=== PATIENT | male | born 1955 | race Caucasian/White ===

== ENCOUNTER → 2017-05-21 | Outpatient (CLI) | payer OTHER | END | disposition home or self-care (01) | LOC: C.LABSPEC 11:24 | PROVIDERS: ATTEND Family Medicine | DX: L98.9 Disorder of the skin and subcutaneous tissue, unspecified (principal) ==

== ENCOUNTER 2019-08-18 19:52 | Observation (INO) ==
[2019-08-18] MEDS ORDERED: SODIUM CHLORIDE 0.9% 1000ML 1,000 ML IV ONE (21:21)
[2019-08-18 21:38] LABS: Basophils # (auto) 0.03 K/uL (0-0.2); Basophils % (auto) 0.6 %; Eosinophils # (auto) 0.29 K/uL (0-0.5); Hematocrit (blood only) 45.2 % (42-52); Hemoglobin 15.8 g/dL (14.0-18.0); Immature Granulocytes # (auto) 0.01 K/uL (0.00-0.02); Immature Granulocytes % (auto) 0.2 %; Lymphocytes # (auto) 1.65 K/uL (1.2-3.4); Mean Corpuscular Volume 91.5 fL (80-100); Mean Platelet Volume 11.2 fL (7.4-10.4); Monocytes # (auto) 0.54 K/uL (0.11-0.59); Monocytes % (auto) 11.1 %; Neutrophils # (auto) 2.33 K/uL (1.4-6.5); Neutrophils % (auto) 48.1 %; Platelet Count 197 K/uL (130-400); RDW Coefficient of Variation 13.1 % (11.5-14.5); RDW Standard Deviation 43.6 fL (36.4-46.3); Red Blood Count 4.94 M/uL (4.7-6.1); White Blood Count 4.85 K/uL (4.8-10.8)
[2019-08-18 21:46] LABS: Alanine Aminotransferase 42 U/L (12-78); Albumin Level 4.1 gm/dl (3.4-5.0); Aspartate Aminotransferase 26 U/L (15-37); BUN Creatinine Ratio 16.1 (10-20); Blood Urea Nitrogen 18 mg/dl (7-18); Calcium 8.9 mg/dl (8.5-10.1); Carbon Dioxide 26 mmol/L (21-32); Chloride 108 mmol/L (98-107); Creatinine Clr Calc Pharmacy 68.8 ml/min; Glucose 90 mg/dl (70-99); Magnesium 2.2 mg/dl (1.8-2.4); Potassium 3.7 mmol/L (3.5-5.1); Sodium 141 mmol/L (136-145)
[2019-08-18 21:49] LABS: INR 1.1 (0.9-1.1); Partial Thromboplastin Ratio 0.9; Prothrombin Time 11.2 Seconds (9.0-12.0)
[2019-08-18 21:50] LABS: Albumin Globulin Ratio 1.2 (0.9-2); Alkaline Phosphatase 46 U/L (45-117); Bilirubin,Total 0.5 mg/dl (0.2-1); Globulin 3.3 gm/dl (2.5-4.0); Total Protein 7.4 gm/dl (6.4-8.2); Troponin I < 0.015 ng/ml (0-0.045)
[2019-08-18 21:54] LABS: iSTAT Creatinine 1.1 mg/dl (0.6-1.3); iSTAT Hemoglobin 14.6 g/dl (14.0-18.0); iSTAT Ionized Calcium 1.15 mmol/l (1.12-1.32); iSTAT Potassium 3.8 mEq/L (3.3-5.0)
[2019-08-18] MEDS ORDERED: OPTIRAY 320 125ml IV PRN (22:12)
--- NOTE | 2019-08-18 22:23 | CT Scan Report ---
HEAD CT NONCONTRAST CT DOSE: HISTORY: Loss of vision in left eye. Stroke evaluation TECHNIQUE: Multiaxial CT images of the head were performed without the use of intravenous contrast. A utomated exposure control was utilized for this study. A dose lowering technique was utilized adheri ng to the principles of ALARA. Comparison: None. Findings: The paranasal sinuses and mastoid air cells are clear. The calvarium and skull base are int act. The ventricles and sulci are within normal limits for age. There is no mass, hematoma, midline s hift, or acute infarct. Impression: No acute intracranial abnormality. Electronically signed by: Milton Rios M.D. 08/18/2019 10:22 PM
--- NOTE | 2019-08-18 22:37 | CT Scan Report ---
HEAD & NECK CTA HISTORY: loss of vision b/l r daly TECHNIQUE: Multiaxial CT images of the head were performed following the intravenous administration o f contrast to evaluate the major cerebral vessels. Multiaxial CT images of the neck were also perform ed following the intravenous administration of contrast to evaluate the major cervical vessels. Maxim um intensity projection images were also obtained. A dose lowering technique was utilized adhering to the principles of ALARA. COMPARISON: Head CT 08/18/2019. FINDINGS: There is no mass, hematoma, midline shift, or acute infarct. Visualized intracranial internal carotid arteries, distal vertebral arteries, and basilar artery are widely patent. There is no significant s tenosis, occlusion, or aneurysm seen within the bilateral ACAs, MCAs, or manager lab. The major dural venous sinuses are patent. Minimal calcified plaque within the bilateral carotid siphons. The aortic arch and proximal great vessels are widely patent. There is no significant stenosis, occ lusion, or dissection identified within the bilateral common carotid, internal carotid, or vertebral arteries. Small retention cyst within the right maxillary sinus. Moderate to severe disc space narrow ing at C3-C4, C5-C6, and C6-C7 with associated small endplate osteophytes. Tortuous bilateral distal internal carotid arteries. Punctate focus of calcified plaque within the left carotid bulb. IMPRESSION: 1. No significant stenosis, occlusion, or aneurysm within the [place]. 2. No significant stenosis, occlusion, or dissection identified within the carotid or vertebral arter ies. Electronically signed by: Milton Rios M.D. 08/18/2019 10:34 PM
--- NOTE | 2019-08-18 22:37 | CT Scan Report ---
HEAD & NECK CTA HISTORY: loss of vision b/l r daly TECHNIQUE: Multiaxial CT images of the head were performed following the intravenous administration o f contrast to evaluate the major cerebral vessels. Multiaxial CT images of the neck were also perform ed following the intravenous administration of contrast to evaluate the major cervical vessels. Maxim um intensity projection images were also obtained. A dose lowering technique was utilized adhering to the principles of ALARA. COMPARISON: Head CT 08/18/2019. FINDINGS: There is no mass, hematoma, midline shift, or acute infarct. Visualized intracranial internal carotid arteries, distal vertebral arteries, and basilar artery are widely patent. There is no significant s tenosis, occlusion, or aneurysm seen within the bilateral ACAs, MCAs, or sales recruiter. The major dural venous sinuses are patent. Minimal calcified plaque within the bilateral carotid siphons. The aortic arch and proximal great vessels are widely patent. There is no significant stenosis, occ lusion, or dissection identified within the bilateral common carotid, internal carotid, or vertebral arteries. Small retention cyst within the right maxillary sinus. Moderate to severe disc space narrow ing at C3-C4, C5-C6, and C6-C7 with associated small endplate osteophytes. Tortuous bilateral distal internal carotid arteries. Punctate focus of calcified plaque within the left carotid bulb. IMPRESSION: 1. No significant stenosis, occlusion, or aneurysm within the [place]. 2. No significant stenosis, occlusion, or dissection identified within the carotid or vertebral arter ies. Electronically signed by: Milton Rios M.D. 08/18/2019 10:34 PM
[2019-08-18] MEDS ORDERED: ASPIRIN CHEW 324 MG PO STA (22:50)
[2019-08-18] MEDS ORDERED: ASPIRIN 81 MG CHEW ONE (22:55)
--- NOTE | 2019-08-18 23:50 | History & Physical Report ---
Date of Service August 18, 2019 Assessment & Plan (1) TIA (transient ischemic attack): Patient presenting after brief episode of homonymous hemianopsia, has resolved completely. Concern for TIA -Observation to medical floor with telemetry -Check MRI brain -Check 2D echo -Check Lipid panel and AIC for risk stratification -Initiate antiplatelet therapy - ASA 81mg po daily -Initiate statin therapy - Atorvastatin 20mg po daily -Neurology consultation appreciated F/E/N - Heplock. Electrolytes WNL. Heart healthy diet as tolerated Ppx - SCDs Code - Full Dispo - Observation to medical floor with telemetry History of Present Illness Chief Complaint: visual loss Primary Care Provider: Oren Laboy MD Grant Harris is a 63yo C male with no significant past medical history presenting with acute visual field deficit. Patient was leaving work this evening when he developed acute loss of right sided visual daly bilaterally. Symptoms lasted approximately 1 minute then slowly resolved over 10-15 seconds. Patient presently with no complaints. Feels that his vision has returned to normal. He denies headache, slurred speech, facial droop, numbness/tingling/CP/palpitations/SOB No additional complaints at this time ER Course: ASA 81mg po daily, NSS Allergies Allergy/AdvReac Type Severity Reaction Status Date / Time latex Allergy Unknown RASH Verified 08/18/19 22:54 No Known Drug Allergies Allergy Unknown NKDA Verified 08/18/19 22:54 Home Medications Home Medications Medication Instructions Recorded Confirmed Type Ca carb-D3-mag xg-uod-idwa-Zn 1 tab PO DAILY 12/15/18 08/18/19 History [Caltrate + D3 Plus Minerals] cyanocobalamin (vitamin B-12) 1,000 mcg PO DAILY 12/15/18 08/18/19 History [Vitamin B-12] omega 9-rzm-qrt-fish oil [Fish Oil] 1 cap PO BID 12/15/18 08/18/19 History vit C,A-Lj-jgoda-lutein-zeaxan 1 tab PO BID 12/15/18 08/18/19 History [PreserVision AREDS-2] azelastine 137 mcg (0.1 %) nasal 2 sprays INTNAS BID PRN #30 ml 07/07/19 08/18/19 Rx spray aerosol fluticasone propionate 50 2 sprays INTNAS DAILY #9.9 gm 07/07/19 08/18/19 Rx mcg/actuation nasal spray,suspension multivitamin tablet 1 tab PO DAILY 08/06/19 08/18/19 History rifaximin 550 mg tablet 550 mg PO TID 08/06/19 08/18/19 History Past Med/Surg History Medical History Acquired deviated nasal septum Acute recurrent sinusitis Chronic sinusitis Facial pain Headache Hypertrophy of nasal turbinates Laryngopharyngeal reflux Nasal congestion Right inguinal hernia Sleep apnea Throat clearing Tinnitus Surgical History S/P laparoscopic hernia repair S/P skin biopsy Status post arthroscopic knee surgery Family History Mother Hypertension Cancer Breast cancer Cardiac disorder Father Cancer Brother Colon cancer Social History Preferred Language: Macedonian marital status: Feels Safe at Home: Yes Smoking Status: Never smoker Second Hand Exposure: No ; Hx Alcohol Use: Yes (2 drinks / day) Hx Substance Use: No Childhood Exposure to Second-Hand Smoke: No Review of Systems Review of Systems: All systems reviewed & are unremarkable except as noted in HPI & below Physical Exam Physical Exam: General: patient resting comfortably, NAD, non-toxic in appearance, AA&O x 4 Skin: warm, dry, intact, no rashes or lesions HEENT: NC/AT, PERRL, EOMI, anicteric sclera, conjunctiva without injection, external ear normal to inspection and nontender, nares patent, moist mucus membranes, dentition intact, no oropharyngeal lesions, neck supple, trachea midline, no LAD, no thyromegaly, no JVD Heart: +S1/S2, regular, no m/r/g Lungs: equal air entry bilaterally, no rales/rhonchi/wheezes Abd: +BS, soft, NT/ND, no masses/organomegaly/ascites Ext: warm, 2+ pulses in UE/LE bilaterally, no clubbing/cyanosis or edema Neuro: nonfocal, patient AA&O x 4, speech intact, no facial droop, CN II-XII grossly intact, normal visual field testing full by confrontation, sensation to light touch intact, moving all extremities on command with equal strength 5/5 bilaterally, coordination with finger to nose and heel to [place] intact Results & Data Vital Signs (Past 12 Hours) Vital Signs Temp Pulse Pulse Resp BP BP Pulse Ox 08/18/19 22:59 83 18 139/92 99 08/18/19 22:24 71 21 144/95 H 97 08/18/19 22:13 68 16 144/95 H 98 08/18/19 21:05 67 16 152/99 H 98 08/18/19 20:28 36.6 C 67 18 140/92 97 Laboratory Results Lab Results 08/18/19 08/18/19 08/18/19 Range/Units 20:57 20:57 20:57 WBC 4.85 (4.8-10.8) K/uL RBC 4.94 (4.7-6.1) M/uL Hgb 15.8 (14.0-18.0) g/dL POC Hgb (14.0-18.0) g/dl Hct 45.2 (42-52) % POC Hct (42-52) % MCV 91.5 (80-100) fL MCH 32.0 (25-34) pg MCHC 35.0 (32-36) g/dL RDW Std Deviation 43.6 (36.4-46.3) fL RDW Coeff of Jinny 13.1 (11.5-14.5) % Plt Count 197 (130-400) K/uL MPV 11.2 H (7.4-10.4) fL Immature Gran % (Auto) 0.2 % Neut % (Auto) 48.1 % Lymph % (Auto) 34.0 % [place] % (Auto) 11.1 % Eos % (Auto) 6.0 % Baso % (Auto) 0.6 % Immature Gran # (Auto) 0.01 (0.00-0.02) K/uL Neut # (Auto) 2.33 (1.4-6.5) K/uL Lymph # (Auto) 1.65 (1.2-3.4) K/uL [place] # (Auto) 0.54 (0.11-0.59) K/uL Eos # (Auto) 0.29 (0-0.5) K/uL Baso # (Auto) 0.03 (0-0.2) K/uL PT 11.2 (9.0-12.0) Seconds INR 1.1 (0.9-1.1) APTT 25.0 (21.0-31.0) Seconds PTT Ratio 0.9 POC Sodium (135-144) mEq/L Sodium 141 (136-145) mmol/L POC Potassium (3.3-5.0) mEq/L Potassium 3.7 (3.5-5.1) mmol/L POC Chloride (101-112) mEq/L Chloride 108 H (98-107) mmol/L Carbon Dioxide 26 (21-32) mmol/L POC Total CO2 (24-31) mEq/l Anion Gap 7.0 (3-11) POC Anion Gap (16-25) mmol/L POC BUN (7-18) mg/dl BUN 18 (7-18) mg/dl Creatinine 1.12 (0.6-1.4) mg/dl POC Creatinine (0.6-1.3) mg/dl Est Cr Clr Drug Dosing 68.8 ml/min Est GFR ( Amer) 80.0 Est GFR (Non-Af Amer) 69.0 BUN/Creatinine Ratio 16.1 (10-20) Glucose 90 (70-99) mg/dl POC Glucose (70-99) POC Glucose (other) (70-99) mg/dl Calcium 8.9 (8.5-10.1) mg/dl POC Ioniz Calcium Dario (1.12-1.32) mmol/l Magnesium 2.2 (1.8-2.4) mg/dl Total Bilirubin 0.5 (0.2-1) mg/dl AST 26 (15-37) U/L ALT 42 (12-78) U/L Alkaline Phosphatase 46 (45-117) U/L Troponin I < 0.015 (0-0.045) ng/ml Total Protein 7.4 (6.4-8.2) gm/dl Albumin 4.1 (3.4-5.0) gm/dl Globulin 3.3 (2.5-4.0) gm/dl Albumin/Globulin Ratio 1.2 (0.9-2) 08/18/19 08/18/19 Range/Units 21:31 21:36 WBC (4.8-10.8) K/uL RBC (4.7-6.1) M/uL Hgb (14.0-18.0) g/dL POC Hgb 14.6 (14.0-18.0) g/dl Hct (42-52) % POC Hct 43 (42-52) % MCV (80-100) fL MCH (25-34) pg MCHC (32-36) g/dL RDW Std Deviation (36.4-46.3) fL RDW Coeff of Jinny (11.5-14.5) % Plt Count (130-400) K/uL MPV (7.4-10.4) fL Immature Gran % (Auto) % Neut % (Auto) % Lymph % (Auto) % [place] % (Auto) % Eos % (Auto) % Baso % (Auto) % Immature Gran # (Auto) (0.00-0.02) K/uL Neut # (Auto) (1.4-6.5) K/uL Lymph # (Auto) (1.2-3.4) K/uL [place] # (Auto) (0.11-0.59) K/uL Eos # (Auto) (0-0.5) K/uL Baso # (Auto) (0-0.2) K/uL PT (9.0-12.0) Seconds INR (0.9-1.1) APTT (21.0-31.0) Seconds PTT Ratio POC Sodium 142 (135-144) mEq/L Sodium (136-145) mmol/L POC Potassium 3.8 (3.3-5.0) mEq/L Potassium (3.5-5.1) mmol/L POC Chloride 105 (101-112) mEq/L Chloride (98-107) mmol/L Carbon Dioxide (21-32) mmol/L POC Total CO2 25 (24-31) mEq/l Anion Gap (3-11) POC Anion Gap 17.0 (16-25) mmol/L POC BUN 17 (7-18) mg/dl BUN (7-18) mg/dl Creatinine (0.6-1.4) mg/dl POC Creatinine 1.1 (0.6-1.3) mg/dl Est Cr Clr Drug Dosing ml/min Est GFR ( Amer) Est GFR (Non-Af Amer) BUN/Creatinine Ratio (10-20) Glucose (70-99) mg/dl POC Glucose 83 (70-99) POC Glucose (other) 89 (70-99) mg/dl Calcium (8.5-10.1) mg/dl POC Ioniz Calcium Dario 1.15 (1.12-1.32) mmol/l Magnesium (1.8-2.4) mg/dl Total Bilirubin (0.2-1) mg/dl AST (15-37) U/L ALT (12-78) U/L Alkaline Phosphatase (45-117) U/L Troponin I (0-0.045) ng/ml Total Protein (6.4-8.2) gm/dl Albumin (3.4-5.0) gm/dl Globulin (2.5-4.0) gm/dl Albumin/Globulin Ratio (0.9-2) Diagnostic Findings HEAD & NECK CTA HISTORY: loss of vision b/l r daly TECHNIQUE: Multiaxial CT images of the head were performed following the intravenous administration of contrast to evaluate the major cerebral vessels. Multiaxial CT images of the neck were also performed following the intravenous administration of contrast to evaluate the major cervical vessels. Maximum intensity projection images were also obtained. A dose lowering technique was utilized adhering to the principles of ALARA. COMPARISON: Head CT 08/18/2019. FINDINGS: There is no mass, hematoma, midline shift, or acute infarct. Visualized intracranial internal carotid arteries, distal vertebral arteries, and basilar artery are widely patent. There is no significant stenosis, occlusion, or aneurysm seen within the bilateral ACAs, MCAs, or dock operator. The major dural venous sinuses are patent. Minimal calcified plaque within the bilateral carotid siphons. The aortic arch and proximal great vessels are widely patent. There is no significant stenosis, occlusion, or dissection identified within the bilateral common carotid, internal carotid, or vertebral arteries. Small retention cyst within the right maxillary sinus. Moderate to severe disc space narrowing at C3- C4, C5-C6, and C6-C7 with associated small endplate osteophytes. Tortuous bilateral distal internal carotid arteries. Punctate focus of calcified plaque within the left carotid bulb. IMPRESSION: 1. No significant stenosis, occlusion, or aneurysm within the [place]. 2. No significant stenosis, occlusion, or dissection identified within the carotid or vertebral arteries. Electronically signed by: Milton Rios M.D. 08/18/2019 10:34 PM Dictated: 08/18/192221 Transcribed: 08/18/192221 HEAD CT NONCONTRAST CT DOSE: HISTORY: Loss of vision in left eye. Stroke evaluation TECHNIQUE: Multiaxial CT images of the head were performed without the use of intravenous contrast. Automated exposure control was utilized for this study. A dose lowering technique was utilized adhering to the principles of ALARA. Comparison: None. Findings: The paranasal sinuses and mastoid air cells are clear. The calvarium and skull base are intact. The ventricles and sulci are within normal limits for age. There is no mass, hematoma, midline shift, or acute infarct. Impression: No acute intracranial abnormality. Electronically signed by: Milton Rios M.D. 08/18/2019 10:22 PM Dictated: 08/18/192213 Transcribed: 08/18/192213 ECG Additional Comments: NSR at 68, no acute ischemic changes Code Status & VTE Plan Code Status FULL VTE Prophylaxis Plan VTE Prophylaxis will be ordered: Yes PG Care Time/CCT Total # of Minutes Spent Total Time Spent with Patient: Total time spent is greater than 50% in coordination of care (as documented) at patient's floor/unit and/or counseling patient:
--- NOTE | 2019-08-19 00:13 | Emergency Department Note ---
Entered by Gauri Tavarez acting as a scribe for Douglas Dueñas DO History of Present Illness General Chief complaint: TIA Symptoms Stated complaint: LOSS OF VISION Source: patient History of Present Illness Provider complaint: vision loss Onset (ago): hour(s) 2 Location: head Pain Consistency: + now resolved Exacerbated By: + none Associated symptoms: + other (-dizziness, -numbness/swelling in legs, -eye pain); no chest pain and no shortness of breath The patient is a 63 year old male who presents to the Emergency Room with complaints of episode of bilateral vision loss that occurred 2 hours ago. The patient reports that he was leaving work at 1900 today and while he was driving he had an episode of vision loss. He notes that he could not see the right side of his visual field from both eyes. He notes that this episode lasted a minute and his vision gradually returned. The patient denies any chest pain, shortness of breath, pain in his eyes, dizziness, numbness, weakness or swelling in his legs. The patient reports that he takes Coumadin. No history of previous strokes. Home Medications Home Medications Medication Instructions Recorded Confirmed Type Ca carb-D3-mag cl-sqq-xytg-Zn 1 tab PO DAILY 12/15/18 08/18/19 History [Caltrate + D3 Plus Minerals] cyanocobalamin (vitamin B-12) 1,000 mcg PO DAILY 12/15/18 08/18/19 History [Vitamin B-12] omega 7-hkd-rjo-fish oil [Fish Oil] 1 cap PO BID 12/15/18 08/18/19 History vit C,B-Oj-tfcjr-lutein-zeaxan 1 tab PO BID 12/15/18 08/18/19 History [PreserVision AREDS-2] azelastine 137 mcg (0.1 %) nasal 2 sprays INTNAS BID PRN #30 ml 07/07/19 9 Rx spray aerosol fluticasone propionate 50 2 sprays INTNAS DAILY #9.9 gm 07/07/19 08/18/19 Rx mcg/actuation nasal spray,suspension multivitamin tablet 1 tab PO DAILY 08/06/19 08/18/19 History rifaximin 550 mg tablet 550 mg PO TID 08/06/19 08/18/19 History Allergies Allergy/AdvReac Type Severity Reaction Status Date / Time latex Allergy Unknown RASH Verified 08/18/19 22:54 No Known Drug Allergies Allergy Unknown NKDA Verified 08/18/19 22:54 Past Med/Surg History Medical History Acquired deviated nasal septum Acute recurrent sinusitis Chronic sinusitis Facial pain Headache Hypertrophy of nasal turbinates Laryngopharyngeal reflux Nasal congestion Right inguinal hernia Sleep apnea Throat clearing Tinnitus Surgical History S/P laparoscopic hernia repair S/P skin biopsy Status post arthroscopic knee surgery Family History Mother Hypertension Cancer Breast cancer Cardiac disorder Father Cancer Brother Colon cancer Social History Preferred Language: Malawian marital status: Feels Safe at Home: Yes Smoking Status: Never smoker Second Hand Exposure: No ; Hx Alcohol Use: Yes (2 drinks / day) Hx Substance Use: No Childhood Exposure to Second-Hand Smoke: No Review of Systems See HPI for pertinent positives & negatives. and A total of 10 systems reviewed and were otherwise negative Physical Exam Vital Signs Vital Signs - 24 hr 08/18/19 20:28 08/18/19 21:05 08/18/19 22:13 Temperature 36.6 C Temperature Source Oral Sepsis Recent Fever Within 48 Hours No Sepsis New/Unexplained Change in Mental Status No Sepsis Action Taken by Nursing No Action Required Pulse Rate 67 Pulse Rate [Apical] 67 68 Pulse Rhythm [Apical] Regular Pulse Strength [Apical] Normal Respiratory Rate 18 16 16 Respiratory Effort / Characteristics Non-Labored Spontaneous Respiratory Depth Normal Respiratory Pattern Regular Blood Pressure 140/92 Blood Pressure [Left Arm] 152/99 H 144/95 H Blood Pressure Mean 108 Blood Pressure Mean [Left Arm] 116 111 Blood Pressure Position [Left Arm] Lying Pulse Oximetry 97 98 98 Oxygen Delivery Method Room Air 08/18/19 22:24 08/18/19 22:59 08/18/19 23:30 Temperature Temperature Source Sepsis Recent Fever Within 48 Hours Sepsis New/Unexplained Change in Mental Status Sepsis Action Taken by Nursing Pulse Rate Pulse Rate [Apical] 71 83 74 Pulse Rhythm [Apical] Pulse Strength [Apical] Respiratory Rate 21 18 16 Respiratory Effort / Characteristics Respiratory Depth Respiratory Pattern Blood Pressure Blood Pressure [Left Arm] 144/95 H 139/92 131/91 Blood Pressure Mean Blood Pressure Mean [Left Arm] 111 107 104 Blood Pressure Position [Left Arm] Pulse Oximetry 97 99 97 Oxygen Delivery Method Room Air Room Air Room Air GENERAL: alert, sitting up in bed, wearing glasses, talking in full sentences EYE EXAM: normal conjunctiva, PERRL and EOM's intact OROPHARYNX: no exudate, no erythema, lips, buccal mucosa, and tongue normal and mucous membranes are moist NECK: supple, no nuchal rigidity, no adenopathy, non-tender LUNGS: Clear to auscultation. Normal chest wall mechanics HEART: no murmurs, S1 normal and S2 normal ABDOMEN: abdomen soft, non-tender, normo-active bowel sounds, no masses, no rebound or guarding. BACK: Back is symmetrical on inspection and there is no deformity, no midline tenderness, no CVA tenderness. SKIN: no rashes and no bruising UPPER EXTREMITIES: upper extremities are grossly normal. LOWER EXTREMITIES: No pitting edema. NEURO EXAM: Normal sensorium, cranial nerves II-XII intact, normal speech, no weakness of arms, no weakness of legs. No drift. Finger to nose intact. Gross sensation intact. Course ED COURSE: Vital signs were reviewed and showed normotensive The patients medical record was reviewed The above diagnostic studies were performed and reviewed. ED treatments and interventions as stated above. 2115: The patient was evaluated in room A4B. A complete history and physical examination was performed. 3: I discussed the patient's case with Dr. Tavarez- Neurology [facility], he recommends that the patient comes in for a TIA work up. 8: I discussed the patient's case with Dr. Villalpando- [facility] Hospitalist, she will accept the patient for further evaluation. 2250: Upon reevaluation, the patient is resting comfortably. I discussed my findings with the patient and he understands and agrees with the treatment plan. Based on the patients age, coexisting illnesses, exam and lab findings the decision to treat as an inpatient was made. The patient remained stable while under my care. The patient will be evaluated for further management. Administered Medications Ioversol (Optiray 320 125ml) 120 ml IV ONCE PRN PRN Reason: Interaction Checking Stop: 08/22/19 22:11 Last Admin: 08/18/19 22:12 Dose: 120 ml Documented by: [id number] Discontinued Medications Aspirin (Aspirin) 81 mg PO NOW STA Stop: 08/18/19 22:51 Last Admin: 08/18/19 22:57 Dose: Not Given Documented by: [id number] Aspirin (Aspirin Chew) Confirm Administered Dose 81 mg .ROUTE .STK-MED ONE Stop: 08/18/19 22:56 Last Admin: 08/18/19 22:57 Dose: 81 mg Documented by: [id number] Sodium Chloride (Nss 1000ml) 1,000 mls @ 999 mls/hr IV .Q1H1M ONE Stop: 08/18/19 22:21 Last Infusion: 08/18/19 22:50 Dose: 0 mls/hr Documented by: [id number] Admin: 08/18/19 21:42 Dose: 999 mls/hr Documented by: [id number] Medical Decision Making Differential Diagnosis Differential diagnosis: Etiologies such as metabolic, infection, hypo/hyperglycemia, electrolyte abnormalities, cardiac sources, intracerebral event, toxicologic, neurologic, as well as others were entertained. Medical Records Attestation: I reviewed the patient's medical records. Home Medications Current Medication List: was personally reviewed by me Laboratory Data Attestation: I reviewed the patient's lab results. Result diagrams: 08/18/19 20:57 08/18/19 20:57 Lab Results 08/18/19 08/18/19 08/18/19 Range/Units 20:57 20:57 20:57 WBC 4.85 (4.8-10.8) K/uL RBC 4.94 (4.7-6.1) M/uL Hgb 15.8 (14.0-18.0) g/dL POC Hgb (14.0-18.0) g/dl Hct 45.2 (42-52) % POC Hct (42-52) % MCV 91.5 (80-100) fL MCH 32.0 (25-34) pg MCHC 35.0 (32-36) g/dL RDW Std Deviation 43.6 (36.4-46.3) fL RDW Coeff of Jinny 13.1 (11.5-14.5) % Plt Count 197 (130-400) K/uL MPV 11.2 H (7.4-10.4) fL Immature Gran % (Auto) 0.2 % Neut % (Auto) 48.1 % Lymph % (Auto) 34.0 % [place] % (Auto) 11.1 % Eos % (Auto) 6.0 % Baso % (Auto) 0.6 % Immature Gran # (Auto) 0.01 (0.00-0.02) K/uL Neut # (Auto) 2.33 (1.4-6.5) K/uL Lymph # (Auto) 1.65 (1.2-3.4) K/uL [place] # (Auto) 0.54 (0.11-0.59) K/uL Eos # (Auto) 0.29 (0-0.5) K/uL Baso # (Auto) 0.03 (0-0.2) K/uL PT 11.2 (9.0-12.0) Seconds INR 1.1 (0.9-1.1) APTT 25.0 (21.0-31.0) Seconds PTT Ratio 0.9 POC Sodium (135-144) mEq/L Sodium 141 (136-145) mmol/L POC Potassium (3.3-5.0) mEq/L Potassium 3.7 (3.5-5.1) mmol/L POC Chloride (101-112) mEq/L Chloride 108 H (98-107) mmol/L Carbon Dioxide 26 (21-32) mmol/L POC Total CO2 (24-31) mEq/l Anion Gap 7.0 (3-11) POC Anion Gap (16-25) mmol/L POC BUN (7-18) mg/dl BUN 18 (7-18) mg/dl Creatinine 1.12 (0.6-1.4) mg/dl POC Creatinine (0.6-1.3) mg/dl Est Cr Clr Drug Dosing 68.8 ml/min Est GFR ( Amer) 80.0 Est GFR (Non-Af Amer) 69.0 BUN/Creatinine Ratio 16.1 (10-20) Glucose 90 (70-99) mg/dl POC Glucose (70-99) POC Glucose (other) (70-99) mg/dl Calcium 8.9 (8.5-10.1) mg/dl POC Ioniz Calcium Dario (1.12-1.32) mmol/l Magnesium 2.2 (1.8-2.4) mg/dl Total Bilirubin 0.5 (0.2-1) mg/dl AST 26 (15-37) U/L ALT 42 (12-78) U/L Alkaline Phosphatase 46 (45-117) U/L Troponin I < 0.015 (0-0.045) ng/ml Total Protein 7.4 (6.4-8.2) gm/dl Albumin 4.1 (3.4-5.0) gm/dl Globulin 3.3 (2.5-4.0) gm/dl Albumin/Globulin Ratio 1.2 (0.9-2) 08/18/19 08/18/19 Range/Units 21:31 21:36 WBC (4.8-10.8) K/uL RBC (4.7-6.1) M/uL Hgb (14.0-18.0) g/dL POC Hgb 14.6 (14.0-18.0) g/dl Hct (42-52) % POC Hct 43 (42-52) % MCV (80-100) fL MCH (25-34) pg MCHC (32-36) g/dL RDW Std Deviation (36.4-46.3) fL RDW Coeff of Jinny (11.5-14.5) % Plt Count (130-400) K/uL MPV (7.4-10.4) fL Immature Gran % (Auto) % Neut % (Auto) % Lymph % (Auto) % [place] % (Auto) % Eos % (Auto) % Baso % (Auto) % Immature Gran # (Auto) (0.00-0.02) K/uL Neut # (Auto) (1.4-6.5) K/uL Lymph # (Auto) (1.2-3.4) K/uL [place] # (Auto) (0.11-0.59) K/uL Eos # (Auto) (0-0.5) K/uL Baso # (Auto) (0-0.2) K/uL PT (9.0-12.0) Seconds INR (0.9-1.1) APTT (21.0-31.0) Seconds PTT Ratio POC Sodium 142 (135-144) mEq/L Sodium (136-145) mmol/L POC Potassium 3.8 (3.3-5.0) mEq/L Potassium (3.5-5.1) mmol/L POC Chloride 105 (101-112) mEq/L Chloride (98-107) mmol/L Carbon Dioxide (21-32) mmol/L POC Total CO2 25 (24-31) mEq/l Anion Gap (3-11) POC Anion Gap 17.0 (16-25) mmol/L POC BUN 17 (7-18) mg/dl BUN (7-18) mg/dl Creatinine (0.6-1.4) mg/dl POC Creatinine 1.1 (0.6-1.3) mg/dl Est Cr Clr Drug Dosing ml/min Est GFR ( Amer) Est GFR (Non-Af Amer) BUN/Creatinine Ratio (10-20) Glucose (70-99) mg/dl POC Glucose 83 (70-99) POC Glucose (other) 89 (70-99) mg/dl Calcium (8.5-10.1) mg/dl POC Ioniz Calcium Dario 1.15 (1.12-1.32) mmol/l Magnesium (1.8-2.4) mg/dl Total Bilirubin (0.2-1) mg/dl AST (15-37) U/L ALT (12-78) U/L Alkaline Phosphatase (45-117) U/L Troponin I (0-0.045) ng/ml Total Protein (6.4-8.2) gm/dl Albumin (3.4-5.0) gm/dl Globulin (2.5-4.0) gm/dl Albumin/Globulin Ratio (0.9-2) Imaging Data Radiologist's Impression: Radiology results as stated below per my review and the radiologist's interpretation: HEAD CT NONCONTRAST CT DOSE: HISTORY: Loss of vision in left eye. Stroke evaluation TECHNIQUE: Multiaxial CT images of the head were performed without the use of intravenous contrast. Automated exposure control was utilized for this study. A dose lowering technique was utilized adhering to the principles of ALARA. Comparison: None. Findings: The paranasal sinuses and mastoid air cells are clear. The calvarium and skull base are intact. The ventricles and sulci are within normal limits for age. There is no mass, hematoma, midline shift, or acute infarct. Impression: No acute intracranial abnormality. Electronically signed by: Milton Rios M.D. 08/18/2019 10:22 PM HEAD & NECK CTA HISTORY: loss of vision b/l r daly TECHNIQUE: Multiaxial CT images of the head were performed following the intravenous administration of contrast to evaluate the major cerebral vessels. Multiaxial CT images of the neck were also performed following the intravenous administration of contrast to evaluate the major cervical vessels. Maximum intensity projection images were also obtained. A dose lowering technique was utilized adhering to the principles of ALARA. COMPARISON: Head CT 08/18/2019. FINDINGS: There is no mass, hematoma, midline shift, or acute infarct. Visualized intracranial internal carotid arteries, distal vertebral arteries, and basilar a rtery are widely patent. There is no significant stenosis, occlusion, or aneurysm seen within the bilateral ACAs, MCAs, or emergency care attendant. The major dural venous sinuses are patent. Minimal calcified plaque within the bilateral carotid siphons. The aortic arch and proximal great vessels are widely patent. There is no significant stenosis, occlusion, or dissection identified within the bilateral common carotid, internal carotid, or vertebral arteries. Small retention cyst within the right maxillary sinus. Moderate to severe disc space narrowing at C3- C4, C5-C6, and C6-C7 with associated small endplate osteophytes. Tortuous bilateral distal internal carotid arteries. Punctate focus of calcified plaque within the left carotid bulb. IMPRESSION: 1. No significant stenosis, occlusion, or aneurysm within the [place] of [place]. 2. No significant stenosis, occlusion, or dissection identified within the carotid or vertebral arteries. Electronically signed by: Milton Rios M.D. 08/18/2019 10:34 PM HEAD & NECK CTA HISTORY: loss of vision b/l r daly TECHNIQUE: Multiaxial CT images of the head were performed following the intravenous administration of contrast to evaluate the major cerebral vessels. Multiaxial CT images of the neck were also performed following the intravenous administration of contrast to evaluate the major cervical vessels. Maximum intensity projection images were also obtained. A dose lowering technique was utilized adhering to the principles of ALARA. COMPARISON: Head CT 08/18/2019. FINDINGS: There is no mass, hematoma, midline shift, or acute infarct. Visualized intracranial internal carotid arteries, distal vertebral arteries, and basilar artery are widely patent. There is no significant stenosis, occlusion, or aneurysm seen within the bilateral ACAs, MCAs, or emergency care attendant. The major dural venous sinuses are patent. Minimal calcified plaque within the bilateral carotid siphons. The aortic arch and proximal great vessels are widely patent. There is no significant stenosis, occlusion, or dissection identified within the bilateral common carotid, internal carotid, or vertebral arteries. Small retention cyst within the right maxillary sinus. Moderate to severe disc space narrowing at C3- C4, C5-C6, and C6-C7 with associated small endplate osteophytes. Tortuous bilateral distal internal carotid arteries. Punctate focus of calcified plaque within the left carotid bulb. IMPRESSION: 1. No significant stenosis, occlusion, or aneurysm within the [place] of [place]. 2. No significant stenosis, occlusion, or dissection identified within the carotid or vertebral arteries. Electronically signed by: Milton Rios M.D. 08/18/2019 10:34 PM ECG Data Attestation: I personally reviewed and interpreted this ECG as follows: Indication: weakness Rate (beats per minute): 68 Rhythm: sinus rhythm Findings: + other (normal axis); no PVC Blood Pressure Blood Pressure Findings: Normal blood pressure Blood Pressure Disposition: did not require urgent referral MDM Narrative Patient is a 63-year-old male with a past medical history of hernia and sinusitis along with tinnitus that presents the ER for loss of vision in his bilateral right visual daly. This lasted for short period of time and gradually resolved. He had no other symptoms associated with this. IV was established blood work was obtained and showed no significant leukocytosis or anemia. INR was unremarkable. BMP along with LFTs bilirubin and troponin was unremarkable. CT of the head along with CTA of the head and neck were negative. EKG with out acute ischemia. Patient was given IV fluids. He was given aspirin. Discussed with neurology and they recommended admission discussed with hospitalist as well. Patient and family were updated bedside. Impression & Plan TIA (transient ischemic attack), Loss of vision Discharge Plan Visit Data Chief Complaint: TIA Symptoms Stated Complaint: LOSS OF VISION ED Provider: Douglas Dueñas Discharge Problem: TIA (transient ischemic attack), Loss of vision Patient Disposition: Being Evaluated by Hospitalist Forms Stand Alone Forms: My [facility] [place] [employer] Prescriptions Prescriptions: No Action azelastine 137 mcg (0.1 %) aerosol,spray 2 sprays INTNAS BID PRN (Reason: ALLERGIC RHINITIS) Qty: 30 RF: 11 fluticasone propionate 50 mcg/actuation spray,suspension 2 sprays INTNAS DAILY Qty: 9.9 RF: 11 Xifaxan 550 mg tablet 550 mg PO TID RF: 0 multivitamin [Multiple Vitamins] tablet 1 tab PO DAILY RF: 0 cyanocobalamin (vitamin B-12) [Vitamin B-12] 1,000 mcg Tablet 1,000 mcg PO DAILY RF: 0 omega 7-glw-zna-fish oil [Fish Oil] 1,000 mg (120 mg-180 mg) Capsule 1 cap PO BID RF: 0 PreserVision AREDS-2 [id number] ii-ycbb-np-mg Capsule 1 tab PO BID RF: 0 Caltrate + D3 Plus Minerals 300 mg-800 unit -25 mg-0.5 mg Tablet 1 tab PO DAILY RF: 0 Referrals Referrals: Oren Laboy MD [Primary Care Provider] - The scribe's documentation has been prepared under my direction and personally reviewed by me in its entirety. I confirm that the note above accurately reflects all work, treatment, procedures, and medical decision making performed by me.
[2019-08-19] MEDS ORDERED: LORazepam 0.5 MG/1 ML VIAL IV STA (00:50)
[2019-08-19] MEDS ORDERED: GADOBUTROL 65ML VIAL IV PRN (02:26)
[2019-08-19 06:53] LABS: Estimated Average Glucose 114 mg/dl; Hemoglobin A1C 5.6 % (4.5-5.6)
[2019-08-19 06:55] LABS: Chol HDL Ratio 3; Cholesterol 161 mg/dl (0-200); HDL Cholesterol 47 mg/dl; LDL Cholesterol Calculated 91 mg/dl; Triglycerides 115 mg/dl (0-150); VLDL Cholesterol 23 mg/dl
--- NOTE | 2019-08-19 07:28 | Magnetic Resonance Report ---
MR brain wo/w con HISTORY: 63 years-old Male ?CVA/TIA acute strokelike symptoms. History of malignant melanoma. COMPARISON: CT head of same day TECHNIQUE: Multiplanar multisequence MRI of the brain was obtained both with and without the use of 7 .6 mL Gadavist FINDINGS: Large pvxip-dn-mckc beef boner localizer images demonstrate no gross extracranial abnormality. There is no restricted diffusion to suggest acute or subacute infarction. Midline structures including the corpu s callosum, brainstem, optic chiasm, pituitary and pineal glands appear unremarkable on the sagittal T1 series. There is no cerebellar tonsillar herniation. Degenerative changes noted about the imaged c ervical spine. No acute intracranial hemorrhage, midline shift, abnormal extra axial collection, hydrocephalus or in tracranial mass. Mild scattered T2/FLAIR hyperintensities about the white matter of the bilateral cer ebral hemispheres is noted. No abnormal intra-axial or extra-axial enhancement. Major flow voids at t he level of the skull base appear patent. Mastoid air cells are clear. Mild polypoid mucosal thickeni ng of the inferior right maxillary sinus measures up to 1.5 cm. Mild mucosal thickening of the nasal turbinates, ethmoid and frontal sinuses. Mild rightward bowing and spurring of the nasal septum. Orbi ts, calvarium and soft tissues are unremarkable. IMPRESSION: 1. No acute intracranial abnormality, specifically no evidence of acute or subacute infarction. 2. No abnormal enhancement. 3. Mild paranasal sinus disease. 4. Suggestion of mild chronic microvascular ischemic disease. The above report was generated using voice recognition software. It may contain grammatical, syntax o r spelling errors. Electronically signed by: Gurwinder Hayes M.D. 08/19/2019 7:26 AM
[2019-08-19] MEDS ORDERED: ASPIRIN 81 MG ECTAB PO SCH (09:00)
[2019-08-19] MEDS ORDERED: FLUTICASONE PROPIONATE NA SPR 16 GM BTL SCH (09:00)
[2019-08-19] MEDS ORDERED: ATORVASTATIN 20 MG TAB PO SCH (09:00)
--- NOTE | 2019-08-19 11:54 | Neurology Consultation ---
Date of Consultation August 19, 2019 Assessment & Plan (1) TIA (transient ischemic attack): Probable TIA localizing to the medial left occipital lobe/left posterior cerebral artery territory, resulting in a transient right homonymous hemianopsia yesterday. No symptomatic recurrence. Completely unremarkable imaging evaluation. Intact neurological examination. The episode may have been triggered by transient vasospasm or thromboembolic phenomena. However, this patient does not appear to have a history of any significant cardiovascular risk factors. At this point, I agree with starting daily low-dose aspirin, 81 mg/day as well as low-dose statin therapy as ordered. Follow-up with results of echocardiogram. Patient should also follow-up with ophthalmology as an outpatient. I do not have any further immediate recommendations for this patient. Please contact me if I may be of further assistance. History of Present Illness Reason for Consultation: TIA Requesting Physician: Mariel Villalpando DO Attending Physician: Daisha Valdez MD History of Present Illness The patient is a 63-year-old male with a chief complaint of vision loss, off to the right, which began acutely, about 2 hours prior to arrival in the emergency department yesterday. The episode resolved within about 1 minute and occurred upon standing up after being stooped forward while looking for something on the ground. He denies experiencing any associated headache, ocular pain, diplopia, hearing loss, vertigo, dizziness, focal weakness, change in speech, or sensory loss. He denies experiencing any similar episodes in the past and denies a history of stroke or TIA. He denies experiencing any symptomatic recurrence overnight and does not have any additional complaints at this time. Allergies Allergy/AdvReac Type Severity Reaction Status Date / Time latex Allergy Unknown RASH Verified 08/18/19 22:54 No Known Drug Allergies Allergy Unknown NKDA Verified 08/18/19 22:54 Home Medications Home Medications Medication Instructions Recorded Confirmed Type Ca carb-D3-mag dt-uld-dpyb-Zn 1 tab PO DAILY 12/15/18 08/18/19 History [Caltrate + D3 Plus Minerals] cyanocobalamin (vitamin B-12) 1,000 mcg PO DAILY 12/15/18 08/18/19 History [Vitamin B-12] omega 2-pbg-lbk-fish oil [Fish Oil] 1 cap PO BID 12/15/18 08/18/19 History vit C,N-Bm-huxxa-lutein-zeaxan 1 tab PO BID 12/15/18 08/18/19 History [PreserVision AREDS-2] azelastine 137 mcg (0.1 %) nasal 2 sprays INTNAS BID PRN #30 ml 07/07/19 08/18/19 Rx spray aerosol fluticasone propionate 50 2 sprays INTNAS DAILY #9.9 gm 07/07/19 08/18/19 Rx mcg/actuation nasal spray,suspension multivitamin tablet 1 tab PO DAILY 08/06/19 08/18/19 History rifaximin 550 mg tablet 550 mg PO TID 08/06/19 08/18/19 History Patient History Medical History Acquired deviated nasal septum Acute recurrent sinusitis Chronic sinusitis Facial pain Headache Hypertrophy of nasal turbinates Laryngopharyngeal reflux Nasal congestion Right inguinal hernia Sleep apnea Throat clearing Tinnitus Surgical History S/P laparoscopic hernia repair S/P skin biopsy Status post arthroscopic knee surgery Family History Mother Hypertension Cancer Breast cancer Cardiac disorder Father Cancer Brother Colon cancer Social History Preferred Language: Slovak Communication Ability: Effective Legal Billing Analyst Required: No Beliefs That Will Affect Care: Spiritism Spiritism Beliefs: jainism marital status: Current Living Situation: Spouse Feels Safe at Home: Yes Smoking Status: Never smoker Second Hand Exposure: No ; Hx Alcohol Use: Yes Alcohol type: hard liquor Hx Substance Use: No Childhood Exposure to Second-Hand Smoke: No Review of Systems Constitutional: no fever, no chills and no fatigue Eyes: as per Subjective / HPI; no diplopia and no eye pain Ear, Nose, Mouth, Throat: no tinnitus and no hearing loss Respiratory: no cough and no dyspnea Cardiovascular: no chest pain and no palpitations Gastrointestinal: no nausea and no vomiting Genitourinary: no dysuria and no urinary incontinence Musculoskeletal: no neck pain and no myalgia Integumentary: no rash and no lesions Neurologic: as per Subjective / HPI; no localized weakness, no loss of sensation, no tremor(s), no seizure-like activity, no dizziness, no headache(s), no abnormal speech, no confusion and no memory loss Psychiatric: no depression and no anxiety Hematologic / Lymphatic: no easy bleeding and no easy bruising Physical Exam Physical Exam: The patient is a well-developed, well-nourished elderly male. He is alert and fully oriented. Recent and remote memory intact. Attention and concentration normal. Patient exhibits a normal spontaneous speech pattern as well as an age-appropriate fund of knowledge. Visual daly full to confrontation. Visual acuity normal. Pupils equal round react to light and accommodation. Eye movements normal. There is no nystagmus, ptosis, or ophthalmoplegia. Facial sensation intact. There is no facial droop or weakness. Hearing intact. Palate elevates to midline. Shoulder shrug intact. Tongue protrudes to midline. Sensation intact to all modalities in all 4 limbs. Deep tendon reflexes intact and symmetrical for the arms and legs. Plantar responses downgoing bilaterally. There is no dysdiadochokinesia or dysmetria qtillw-nd-bebh or lgyh-zp-mkym bilaterally. Ophthalmoscopic examination reveals normal-appearing optic disks and posterior segments. No papilledema or hemorrhages. Carotid pulses normal bilaterally, no bruits to auscultation. Gait and station normal. Patient exhibits normal muscle strength and tone for all 4 limbs. No atrophy. No abnormal movements observed. Results & Data Vital Signs (Past 12 Hours) Vital Signs Temp Pulse Pulse Resp BP BP Pulse Ox 08/19/19 08:15 67 08/19/19 07:41 37.0 C 65 20 125/78 93 08/19/19 04:07 36.5 C 59 L 18 129/79 96 08/19/19 03:29 72 08/19/19 03:07 61 18 98 08/19/19 00:35 36.7 C 76 20 136/86 95 08/19/19 00:18 71 18 137/93 96 Laboratory Results WBC 4.85, hemoglobin 15.8, hematocrit 45.2, platelet count 197, sodium 142, potassium 3.8, BUN 18, creatinine 1.1, glucose 90, hemoglobin A1c 5.6, magnesium 2.2, triglycerides 115, cholesterol 161, LDL 91, VLDL 23, HDL [address] of the head is negative for hemorrhage or acute process. I reviewed the images as well as the radiologist interpretation of this test. A CT angiogram of the head and neck were unremarkable. No evidence for stenosis, occlusion, aneurysm, or dissection. An MRI of the brain is unremarkable. No evidence for acute or subacute infarct. There is minimal chronic microvascular ischemic change. There is an incidental polypoid mucosal thickening within the inferior right maxillary sinus. I reviewed the images as well as the radiologist interpretation of this test. Electrocardiogram reveals normal sinus rhythm, 68 bpm.
--- NOTE | 2019-08-19 14:55 | Ultrasound Report ---
BILATERAL LOWER EXTREMITY VENOUS DOPPLER HISTORY: intratrial shunt/TIA COMPARISON STUDY: Duplex venous Doppler study 05/01/2016. FINDINGS: There is normal compressibility, flow, and augmentation within the bilateral lower extremit y deep venous systems. IMPRESSION: No DVT within the right or left lower extremity. Electronically signed by: Gurwinder Hayes M.D. 08/19/2019 2:53 PM
--- NOTE | 2019-08-19 16:07 | Discharge Summary ---
Date of Service August 19, 2019 Admission HPI Per Admitting Provider Grant Harris is a 63yo C male with no significant past medical history presenting with acute visual field deficit. Patient was leaving work this evening when he developed acute loss of right sided visual daly bilaterally. Symptoms lasted approximately 1 minute then slowly resolved over 10-15 seconds. Patient presently with no complaints. Feels that his vision has returned to normal. He denies headache, slurred speech, facial droop, numbness/tingling/CP/palpitations/SOB No additional complaints at this time ER Course: ASA 81mg po daily, NSS Admission Exam Per Admitting Provider Physical Exam: General: patient resting comfortably, NAD, non-toxic in appearance, AA&O x 4 Skin: warm, dry, intact, no rashes or lesions HEENT: NC/AT, PERRL, EOMI, anicteric sclera, conjunctiva without injection, external ear normal to inspection and nontender, nares patent, moist mucus membranes, dentition intact, no oropharyngeal lesions, neck supple, trachea midline, no LAD, no thyromegaly, no JVD Heart: +S1/S2, regular, no m/r/g Lungs: equal air entry bilaterally, no rales/rhonchi/wheezes Abd: +BS, soft, NT/ND, no masses/organomegaly/ascites Ext: warm, 2+ pulses in UE/LE bilaterally, no clubbing/cyanosis or edema Neuro: nonfocal, patient AA&O x 4, speech intact, no facial droop, CN II-XII grossly intact, normal visual field testing full by confrontation, sensation to light touch intact, moving all extremities on command with equal strength 5/5 bilaterally, coordination with finger to nose and heel to palencia intact Principal Diagnosis TIA, intra-atrial shunt Discharge Exam Constitutional WD/WN, vitals as above Eyes PERRL, conjunctivae normal, anicteric sclerae ENMT external ear and nose normal, oropharynx normal Neck trachea midline, no thyromegaly Respiratory normal respiratory effort, lungs clear to auscultation Cardiovascular RRR, no murmur, no edema Gastrointestinal (Abdomen) normal bowel sounds, soft, nontender, no hepatosplenomegaly Musculoskeletal no cyanosis or clubbing, extremities motor strength 5/5 Skin no rashes, warm and dry Neurologic PERRL, EOMI, accommodation nl, no face palsy, no dysarthria Psychiatric A+Ox3, euthymic affect Discharge Data Allergies Allergy/AdvReac Type Severity Reaction Status Date / Time latex Allergy Unknown RASH Verified 08/18/19 22:54 No Known Drug Allergies Allergy Unknown NKDA Verified 08/18/19 22:54 Consultations 08/18/19 22:50 ED Decision to Admit Stat 08/19/19 00:41 Consult Neurology Routine [facility], [place] [phone] Ultrasound Report Patient: GRANT HARRIS Date: 08/18/19 MR#: [id number]: [address] Acct ID:[id number]: Date: [address] [place] [address] Zip: [place] [address] Age: 63Location: 2N Sex: M Room/Bed: [facility] Att Phy: Daisha Valdez MDDiagnosis: TIA Mallika Phy: Oren Laboy, MDService Date: 08/19/19 Fam Phy:Interpreting Phy: Bryan Hayes Admit Phy: Mariel Villalpando D.O. Ordering Phy: Victor Manuel Keane MD cc: ~ BILATERAL LOWER EXTREMITY VENOUS DOPPLER HISTORY: intratrial shunt/TIA COMPARISON STUDY: Duplex venous Doppler study 05/01/2016. FINDINGS: There is normal compressibility, flow, and augmentation within the bilateral lower extremity deep venous systems. IMPRESSION: No DVT within the right or left lower extremity. Electronically signed by: Gurwinder Hayes M.D. 08/19/2019 2:53 PM Dictated: 08/19/19 1452 Transcribed: 08/19/19 1452 GRANT HARRIS 63 M 1955 [facility], [place] [phone] Magnetic Resonance Report Patient: GRANT HARRIS Date: 08/18/19 MR#: [id number]: [address] Acct ID:[id number]: Date: [address] [place] [address] Zip: [place] [address] Age: 63Location: 2N Sex: M Room/Bed: [facility] Att Phy: Daisha Valdez MDDiagnosis: TIA? Mallika Phy: Oren Laboy, MDService Date: 08/19/19 Fam Phy:Interpreting Phy: Bryan Hayes Admit Phy: Mariel Villalpando D.O. Ordering Phy: Mariel Villalpando D.O. cc: ~ MR brain wo/w con HISTORY: 63 years-old Male ?CVA/TIA acute strokelike symptoms. History of malignant melanoma. COMPARISON: CT head of same day TECHNIQUE: Multiplanar multisequence MRI of the brain was obtained both with and without the use of 7.6 mL Gadavist FINDINGS: Large vfzoc-[id number] quote clerk localizer images demonstrate no gross extracranial abnormality. There is no restricted diffusion to suggest acute or subacute infarction. Midline structures including the corpus callosum, brainstem, optic chiasm, pituitary and pineal glands appear unremarkable on the sagittal T1 series. There is no cerebellar tonsillar herniation. Degenerative changes noted about the imaged cervical spine. No acute intracranial hemorrhage, midline shift, abnormal extra axial collection, hydrocephalus or intracranial mass. Mild scattered T2/FLAIR hyperintensities about the white matter of the bilateral cerebral hemispheres is noted. No abnormal intra-axial or extra-axial enhancement. Major flow voids at the level of the skull base appear patent. Mastoid air cells are clear. Mild polypoid mucosal thickening of the inferior right maxillary sinus measures up to 1.5 cm. Mild mucosal thickening of the nasal turbinates, ethmoid and frontal sinuses. Mild rightward bowing and spurring of the nasal septum. Orbits, calvarium and soft tissues are unremarkable. IMPRESSION: 1. No acute intracranial abnormality, specifically no evidence of acute or subacute infarction. 2. No abnormal enhancement. 3. Mild paranasal sinus disease. 4. Suggestion of mild chronic microvascular ischemic disease. The above report was generated using voice recognition software. It may contain grammatical, syntax or spelling errors. Electronically signed by: Gurwinder Hayes M.D. 08/19/2019 7:26 AM Dictated: 08/19/19718 Transcribed: 08/19/19718 [place], [place] [phone] CT Scan Report Patient: GRANT HARRIS Date: 08/18/19 MR#: [id number]: [address] [facility] Acct ID:[id number]: Date: [address] [place] [address] Zip: [place] [address] Age: 63Location: ED Sex: M Room/Bed: Att Phy:Diagnosis: LOSS OF VISION Mallika Phy: Oren Laboy, MDService Date: 08/18/19 [facility] Phy:Interpreting Phy: Milton Rios MD Admit Phy: Ordering Phy: Douglas Dueñas DO cc: ~ HEAD & NECK CTA HISTORY: loss of vision b/l r daly TECHNIQUE: Multiaxial CT images of the head were performed following the intravenous administration of contrast to evaluate the major cerebral vessels. Multiaxial CT images of the neck were also performed following the intravenous administration of contrast to evaluate the major cervical vessels. Maximum intensity projection images were also obtained. A dose lowering technique was utilized adhering to the principles of ALARA. COMPARISON: Head CT 08/18/2019. FINDINGS: There is no mass, hematoma, midline shift, or acute infarct. Visualized intracranial internal carotid arteries, distal vertebral arteries, and basilar artery are widely patent. There is no significant stenosis, occlusion, or aneurysm seen within the bilateral ACAs, MCAs, or diabetes education coordinator. The major dural venous sinuses are patent. Minimal calcified plaque within the bilateral carotid siphons. The aortic arch and proximal great vessels are widely patent. There is no significant stenosis, occlusion, or dissection identified within the bilateral common carotid, internal carotid, or vertebral arteries. Small retention cyst within the right maxillary sinus. Moderate to severe disc space narrowing at C3- C4, C5-C6, and C6-C7 with associated small endplate osteophytes. Tortuous bilateral distal internal carotid arteries. Punctate focus of calcified plaque within the left carotid bulb. IMPRESSION: 1. No significant stenosis, occlusion, or aneurysm within the [place]. 2. No significant stenosis, occlusion, or dissection identified within the carotid or vertebral arteries. Electronically signed by: Milton Rios M.D. 08/18/2019 10:34 PM Dictated: 08/18/192221 Transcribed: 08/18/192221 [place], [place] [phone] CT Scan Report Patient: GRANT HARRIS Date: 08/18/19 MR#: [id number]: [address] Acct ID:[id number]: [facility] Zip[facility] [place] [address] Age: 63Location: ED Sex: M Room/Bed: Att Phy:Diagnosis: LOSS OF VISION Mallika Phy: Oren Laboy, MDService Date: 08/18/19 Fam Phy:Interpreting Phy: Milton Rios MD Admit Phy: Ordering Phy: Douglas Dueñas, cc: ~ HEAD & NECK CTA HISTORY: loss of vision b/l r daly TECHNIQUE: Multiaxial CT images of the head were performed following the intravenous administration of contrast to evaluate the major cerebral vessels. Multiaxial CT images of the neck were also performed following the intravenous administration of contrast to evaluate the major cervical vessels. Maximum intensity projection images were also obtained. A dose lowering technique was utilized adhering to the principles of ALARA. COMPARISON: Head CT 08/18/2019. FINDINGS: There is no mass, hematoma, midline shift, or acute infarct. Visualized intracranial internal carotid arteries, distal vertebral arteries, and basilar artery are widely patent. There is no significant stenosis, occlusion, or aneurysm seen within the bilateral ACAs, MCAs, or diabetes education coordinator. The major dural venous sinuses are patent. Minimal calcified plaque within the bilateral carotid siphons. The aortic arch and proximal great vessels are widely patent. There is no significant stenosis, occlusion, or dissection identified within the bilateral common carotid, internal carotid, or vertebral arteries. Small retention cyst within the right maxillary sinus. Moderate to severe disc space narrowing at C3- C4, C5-C6, and C6-C7 with associated small endplate osteophytes. Tortuous bilateral distal internal carotid arteries. Punctate focus of calcified plaque within the left carotid bulb. IMPRESSION: 1. No significant stenosis, occlusion, or aneurysm within the [place]. 2. No significant stenosis, occlusion, or dissection identified within the carotid or vertebral arteries. Electronically signed by: Milton Rios M.D. 08/18/2019 10:34 PM Dictated: 08/18/192221 Transcribed: 08/18/192221 Ordered Studies 08/18/19 21:21 CT head/brain wo con Stat 08/18/19 21:22 CT angio head w con Stat CT angio neck with con Stat 08/19/19 00:41 MR brain wo/w con Routine 08/19/19 13:53 US venous doppler LE Routine Hospital Course (1) TIA (transient ischemic attack): 63-year-old male with past medical history significant for DVT presented with right visual loss which resolved after 1 minute. Imaging was negative for stroke. Likely diagnosis of TIA, although the patient has few risk factors for cardiovascular disease. Of note, the patient was found to have patent foramen ovale on echocardiogram. TIA Patient's symptoms resolved almost immediately, no other neurologic symptoms, normal exam CTA of head and neck, MRI of brain normalno acute or subacute lesions Seen by neurology - started on aspirin 81 mg daily, atorvastatin 20 mg daily PFO/intra-atrial shunt Seen on echocardiogram Dopplers of the lower extremities -- negative DVT Paradoxical embolism less likely Hypercoagulable panel obtained. Except for protein S and C which were tested in the past following his previous DVT. Pending at discharge Spoke with cardiology - recommended nonemergent outpatient follow-up with specialist in [place] to discuss repair (2) Patent foramen ovale: Total Time Total Time Spent Total Time Spent (In Minutes): Greater than 30 minutes Total Time Includes: Examination of the Patient, Discharge Planning, Medication Reconciliation and Communication With Other Providers Discharge Plan Discharge Items Patient Disposition: Home - Self-Care Reason For Visit: TIA Discharge Diagnosis: TIA Condition on Discharge: Good Activity: Resume your previous activity Non-emergency contact: Primary Care Provider Call non-emergency contact if: your symptoms worsen Follow-up/Referrals: Oren Laboy MD [Primary Care Provider] - Diet: Heart Healthy Addtl Attending Provider Instructions: You were seen [facility] for a temporary vision loss in your right eye. You received imaging in the hospital that was normal and did not show any signs of stroke. Likely diagnosis is a transient ischemic attack (see information below for more details regarding TIA). We are starting you on a medication called atorvastatin. This is a medication that lowers cholesterol, but it also stabilizes existing cholesterol plaques. In addition, we would like you take baby aspirin. You were also found to have a intratrial shunt. This is a small hole between the chambers of your heart. While rare to cause stroke, this hole does put you at higher risk. We did an ultrasound of the veins of your legs which was negative for blood clots, making it less likely that your TIA was secondary to an embolization through this hole. Nonetheless, we see it prudent to have this heart defect evaluated by a specialist. This can be arranged by your PCP. We also took blood to test for genetic risk for blood clots considering your past history of blood clots in your legs. Your primary care doctor can follow up on these test. Please follow-up with your primary care doctor in the next 5-7 business days regarding this hospitalization. What is a transient ischemic attack? A transient ischemic attack (TIA) is like a stroke in that it causes the same symptoms as a stroke, but it does not damage the brain. TIAs happen when an artery in the brain gets clogged, or closes off, and then reopens on its own. This can happen if a blood clot forms and then moves away or dissolves. The symptoms of a TIA are the same as the symptoms of a stroke and can include: Weakness or numbness of the hand, tongue, cheek, face, arm, or leg Trouble speaking normally or at all Trouble seeing clearly with 1 or both eyes With a stroke, the symptoms are long-lasting, while a TIA goes away quickly. What is the difference between TIA and stroke? A TIA does not cause permanent damage to the brain like a stroke does. But the symptoms are the same. This can make it hard to tell if a person is having a TIA or a stroke. What causes a TIA? Just like a stroke, a TIA can happen when the blood supply to part of the brain is cut off for a short time. This can happen if a blood clot blocks the flow of blood through an artery in the brain and then dissolves or moves away. It can also happen if one of the small arteries in the brain begins to close off from the effects of high blood pressure. How can you tell if someone is having a TIA? The symptoms of a TIA are the same as the symptoms of a stroke. There is an easy way to remember the signs of a stroke. Just think of the word "FAST" (figure 1). Each letter in the word stands for 1 of the signs you should watch for: Face Does the person's face look uneven or droop on 1 side? Arm Does the person have weakness or numbness in 1 or both arms? Does 1 arm drift down if the person tries to hold both arms out? Speech Is the person having trouble speaking? Does his or her speech sound strange? Time If you notice any of these stroke signs, even if they go away, call for an ambulance (in the [place] and [place], dial 9-1-1). You need to act FAST. The sooner treatment begins, the better the chances of recovery. In the hospital, doctors can do tests to look for problems in the brain, blood vessels, and heart. This can help them choose the right treatment. What is the risk of stroke after TIA? A person who has had a TIA is at high risk of having a stroke. This risk is highest in the first few days to weeks after the TIA. That is why it is so important to get medical attention right away if you think you (or someone else) might have had a TIA. How is a TIA treated? TIAs are not usually treated directly. Instead, treatments are directed at reducing the risk that a person will go on to have a full-blown stroke. To lower your risk of stroke, you should: Take your medicines exactly as directed. Medicines that are especially important in preventing strokes include: Medicines to lower blood pressure Medicines called statins, which lower cholesterol Medicines to prevent blood clots, such aspirin or blood thinners Medicines that help to keep your blood sugar as close to normal as possible (if you have diabetes) Make lifestyle changes: Stop smoking, if you smoke Get regular exercise (if your doctor says it's safe) for at least 30 minutes a day on most days of the week Lose weight, if you are overweight Eat a diet rich in fruits, vegetables, and low-fat dairy products, and low in meats, sweets, and refined grains (such as white bread or white rice) Eat less salt (sodium) Limit the amount of alcohol you drink -If you are a woman, do not drink more than 1 drink a day -If you are a man, do not drink more than 2 drinks a day Another way to prevent strokes is to have surgery to reopen clogged arteries in the neck. This surgery is appropriate for only a small group of people. What is an atrial septal defect? An atrial septal defect (or "ASD") is a hole between 2 sections of the heart. The heart is divided into 4 sections, called "chambers." People with an ASD have a hole between the 2 upper chambers called the "atria" (figure 1). Having a large- or medium-sized hole can change how blood flows through the heart. Plus, it can make the heart work harder than it should. This can cause health problems. A person who has an ASD was born with it. ASDs are often found by a doctor in childhood, but in some cases, an ASD is not found until the person is an adult. It might be found when it starts causing symptoms, or unexpectedly when the person is getting tests for another reason. What are the symptoms of an atrial septal defect? Many people with an ASD have no symptoms for years. Small ASDs usually close by 2 to 5 years of age, and don't cause problems. If a large- or medium-sized ASD is not found and treated, it can cause symptoms as a person gets older, usually by age 40. These can include: Abnormal heartbeat Your heart might feel like it is racing or skipping beats. Trouble exercising or doing other physical activities You might also get tired easily just from normal daily activities. Trouble breathing Skin that looks blue An ASD can also sometimes cause a heart murmur. This is an extra sound doctors or nurses hear when they listen to the heartbeat with a stethoscope. How is an atrial septal defect treated? If your ASD is large- or medium-sized or causing symptoms, you will most likely need a procedure to close it. This can be done in different ways, depending on where the hole is: A procedure called "transcatheter closure" In this treatment, a doctor places a thin tube into a blood vessel in an arm or leg. Then, he or she moves the tube through the blood vessel to the heart. When the tube gets to the hole in the heart, the doctor uses the tube to put in a small device that closes the hole. Surgery to patch the hole Even if your ASD is repaired, you might still need treatment for related problems. For example: If you have an abnormal heartbeat, this can be treated with different medicines and procedures. If you have high blood pressure in the blood vessels that go from the heart to the lungs (a condition called "pulmonary hypertension"), you might need medicines or other treatments. If you have a small ASD that does not need repair, you will need to see your doctor every 2 or 3 years. He or she will do an exam and tests to check how your heart is working. Pending Studies at Discharge: Yes Studies:: hypercoag panel Stand-Alone Forms: Medications to Prevent Stroke, My [facility] Medications and DC Order Prescriptions: New atorvastatin [Lipitor] 20 mg tablet 20 mg PO DAILY Qty: 30 RF: 0 aspirin 81 mg tablet,delayed release (DR/EC) 81 mg PO DAILY Qty: 30 RF: 0 Continued azelastine 137 mcg (0.1 %) aerosol,spray 2 sprays INTNAS BID PRN (Reason: ALLERGIC RHINITIS) Qty: 30 RF: 11 fluticasone propionate 50 mcg/actuation spray,suspension 2 sprays INTNAS DAILY Qty: 9.9 RF: 11 Xifaxan 550 mg tablet 550 mg PO TID RF: 0 multivitamin [Multiple Vitamins] tablet 1 tab PO DAILY RF: 0 cyanocobalamin (vitamin B-12) [Vitamin B-12] 1,000 mcg Tablet 1,000 mcg PO DAILY RF: 0 omega 3-jtd-yij-fish oil [Fish Oil] 1,000 mg (120 mg-180 mg) Capsule 1 cap PO BID RF: 0 PreserVision AREDS-2 [id number] km-cnxr-bc-mg Capsule 1 tab PO BID RF: 0 Caltrate + D3 Plus Minerals 300 mg-800 unit -25 mg-0.5 mg Tablet 1 tab PO DAILY RF: 0 Discharge Orders: Discharge Order (Routine); Ordered 08/19/19 Ordered By: Victor Manuel Keane Admission Data Admit Date/Time: 08/18/19 23:40 Attending Provider: Daisha Valdez Admit Provider: Mariel Villalpando Primary Care Provider: Oren Laboy Other Providers: Mariel Villalpando ; Tian Tavarez Other Interventions: Discharge Summary Assessment (RN) Last Done: 08/19/19 16:14 DC Date/Time DO NOT enter until pt leaves facility: 08/19/19 17:40 Supervising Physician Co-Signing Physician Notes Resident Physician Supervision Note: I independently interviewed and examined the patient and verified the alaniz history and physical, reviewed labs and image studies, discussed the case with the resident Dr. Keane and agree with the findings and care plan. Resident Activity Tracking Resident Involvement: Resident Care Provided Care Provided: Adult Hospital Medicine
[2019-08-19] MEDS ORDERED: STROKE PATIENT DISCHARGE PRN (16:45)
--- NOTE | 2019-08-19 17:48 | Pharmacy Report ---
Pharmacist Stroke Counseling - Date of Service August 19, 2019 - Scope: Pharmacy has been consulted to provide medication discharge counseling for this patient admitted with transient ischemic attack as per the Pharmacist Discharge Counseling for Stroke Patients Protocol. - Medications on Discharge: Home Medications Medication Instructions Recorded Confirmed Caltrate + D3 Plus Minerals 1 tab PO DAILY 12/15/18 08/18/19 PreserVision AREDS-2 1 tab PO BID 12/15/18 08/18/19 cyanocobalamin (vitamin B-12) 1,000 mcg PO DAILY 12/15/18 08/18/19 [Vitamin B-12] omega 8-fjh-dff-fish oil [Fish Oil] 1 cap PO BID 12/15/18 08/18/19 multivitamin tablet 1 tab PO DAILY 08/06/19 08/18/19 rifaximin 550 mg tablet 550 mg PO TID 08/06/19 08/18/19 New Rx's Medication Instructions Recorded azelastine 137 mcg (0.1 %) nasal 2 sprays INTNAS BID PRN #30 ml 07/07/19 spray aerosol fluticasone propionate 50 2 sprays INTNAS DAILY #9.9 gm 07/07/19 mcg/actuation nasal spray,suspension aspirin 81 mg PO DAILY #30 tab 08/19/19 atorvastatin [Lipitor] 20 mg PO DAILY #30 tab 08/19/19 - Action: The above medications, specifically ones for stroke treatment/prophylaxis, have been reviewed in detail with the patient and/or patient chemical sales representative(s) prior to discharge. This includes indication, common adverse reactions, drug interactions, and medication administration. Medication counseling has been employed using the teach-back method to ensure understanding. - Outcome: The patient and/or patient chemical sales representative(s) have demonstrated understanding of the medications. Please note, they are aware that the pharmacist will call them within 72 hours post-discharge to confirm that the appropriate medications are being taken and answer any further medication related questions the patient might have at that time. 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 - Patient on low-intensity statin per Neurology recommendation given limited imaging and symptomatology to confirm TIA Thank you for allowing pharmacy to be involved in the care of this patient. Please call [phone] with any additional questions
--- NOTE | 2019-08-21 13:24 | Pharmacy Report ---
Pharmacist Post D/C Phone Note - Phone Note: Date of phone call: August 21, 2019. 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 Discharge counseling pharmacist contact information has already been provided to the patient should questions arise. Thank you for allowing us to be involved in the care of this patient. - Home Medications: Home Medications Medication Instructions Recorded Confirmed Caltrate + D3 Plus Minerals 1 tab PO DAILY 12/15/18 08/18/19 PreserVision AREDS-2 1 tab PO BID 12/15/18 08/18/19 cyanocobalamin (vitamin B-12) 1,000 mcg PO DAILY 12/15/18 08/18/19 [Vitamin B-12] omega 0-egl-dlj-fish oil [Fish Oil] 1 cap PO BID 12/15/18 08/18/19 multivitamin tablet 1 tab PO DAILY 08/06/19 08/18/19 rifaximin 550 mg tablet 550 mg PO TID 08/06/19 08/18/19 New Rx's Medication Instructions Recorded azelastine 137 mcg (0.1 %) nasal 2 sprays INTNAS BID PRN #30 ml 07/07/19 spray aerosol fluticasone propionate 50 2 sprays INTNAS DAILY #9.9 gm 07/07/19 mcg/actuation nasal spray,suspension aspirin 81 mg PO DAILY #30 tab 08/19/19 atorvastatin [Lipitor] 20 mg PO DAILY #30 tab 08/19/19
--- NOTE | 2019-08-22 13:18 | Pharmacy Report ---
Pharmacist Post D/C Phone Note - Phone Note: Date of phone call: August 22, 2019. Individual with whom pharmacist spoke to: PATEL RICHARDS The following questions were reviewed during the phone call with responses listed below each: Can you tell me the medications that you are currently taking as well as when and how you take each medication? -See Table Below When have you missed any doses of your medications? - Missed none What side effects are you having from your medications, specifically, the new medications you were started on? - No problems or side effects. What questions do you have about your medications? - None What problems are you having obtaining your medications? - None When is your next appointment with your primary care doctor? - Did not say. Additional comments: - Patient was brief in his responses and did not have any questions/concerns. He said he is only on ASA and Lipitor and not worried about them. As per the Pharmacist Discharge Counseling for Stroke Patients Protocol, this phone call has been completed within 72 hours of discharge. Thank you for allowing us to be involved in the care of this patient. - Home Medications: Home Medications Medication Instructions Recorded Confirmed Caltrate + D3 Plus Minerals 1 tab PO DAILY 12/15/18 08/18/19 PreserVision AREDS-2 1 tab PO BID 12/15/18 08/18/19 cyanocobalamin (vitamin B-12) 1,000 mcg PO DAILY 12/15/18 08/18/19 [Vitamin B-12] omega 3-asz-qrp-fish oil [Fish Oil] 1 cap PO BID 12/15/18 08/18/19 multivitamin tablet 1 tab PO DAILY 08/06/19 08/18/19 rifaximin 550 mg tablet 550 mg PO TID 08/06/19 08/18/19 New Rx's Medication Instructions Recorded azelastine 137 mcg (0.1 %) nasal 2 sprays INTNAS BID PRN #30 ml 07/07/19 spray aerosol fluticasone propionate 50 2 sprays INTNAS DAILY #9.9 gm 07/07/19 mcg/actuation nasal spray,suspension aspirin 81 mg PO DAILY #30 tab 08/19/19 atorvastatin [Lipitor] 20 mg PO DAILY #30 tab 08/19/19
[2019-08-25 07:20] LABS: Anti Cardiolipin Ab IgG <14 GPL (< = 14); Anti Cardiolipin Ab IgM 13 MPL (< = 12); Anti-Cardiolipin Ab IgA <11 APL (< = 11); Anti-Thrombin III Activity 106 % activity (80-120); B2 Glycoprotein IgA <9 SAU (<=20); B2 Glycoprotein IgG <9 SGU (<=20); B2 Glycoprotein IgM <9 SMU (<=20); Lupus Antic Hexagonal Phase Negative (Negative)
== END 2019-08-19 17:40 | disposition home or self-care (01) ==
LOC: ED 19:52 → 2N 19:52 → SUATTDRO 23:40 → 2N 08-19 00:23

== ENCOUNTER 2024-04-17 18:23 | Inpatient (IN) ==
--- NOTE | 2024-04-17 18:43 | Emergency Department Note ---
Impression & Plan Acute CVA (cerebrovascular accident), Arm numbness left, Left arm weakness ED Provider Note NAME: PATEL RICHARDS AGE: 68 SEX: M : 1955 ARRIVES VIA: Walk-In INFORMANT: Patient ED PROVIDER(S): Douglas Dueñas DO CHIEF COMPLAINT: left arm weakness and numbness HPI: Patient is a 68-year-old male who presents to the ER for left facial numbness, arm numbness and weakness which started on Saturday. Symptoms have improved but he still has some numbness and some weakness with fine motor skills. He had an MRI performed and was referred in. Denies any headache or change in vision. No chest pain or shortness of breath. No nausea, vomiting, or diarrhea. No dysuria, urgency, or frequency. Patient had an MRI performed as an outpatient which was not read but believed to have a possible stroke. ADDITIONAL HISTORY OBTAINED: Per HPI Chronic Medical/Social Conditions Affecting Care: Per HPI PAST MEDICAL HISTORY:See Below PAST SURGICAL HISTORY:See Below FAMILY HISTORY:See Below SOCIAL HISTORY:See Below HOME MEDICATIONS:See Below ALLERGIES:See Below VITALS:See Below PHYSICAL EXAMINATION: GENERAL: Sitting up in bed, alert, well appearing, well nourished, no distress, non-toxic EYE EXAM: normal conjunctiva. PERRL and EOM's intact. OROPHARYNX: no exudate, no erythema, lips, buccal mucosa, and tongue normal and mucous membranes are moist NECK: supple, no nuchal rigidity, no adenopathy, non-tender LUNGS: Clear to auscultation. Normal chest wall mechanics HEART: no murmurs, S1 normal and S2 normal ABDOMEN: abdomen soft, non-tender, normo-active bowel sounds, no masses, no rebound or guarding. BACK: Back is symmetrical on inspection and there is no deformity, no midline tenderness, no CVA tenderness. SKIN: no rashes and no bruising UPPER EXTREMITIES: upper extremities are grossly normal. LOWER EXTREMITIES: No pitting edema. NEURO EXAM: Normal sensorium, cranial nerves II-XII intact, normal speech, no weakness of arms, no weakness of legs. No drift. Finger to nose intact. Gross sensation intact. MEDICAL DECISION MAKING: Patient was a 68-year-old male who presents ER for left arm weakness and numbness which started on Saturday and has improved. IV was established blood work was obtained. Labs showed no significant leukocytosis or anemia. INR unremarkable. BMP on LFTs bilirubin and troponin was negative. Patient is completely neurologically intact at this time without any focal deficit. We reviewed the MRI on DWI images and does suggest stroke. I did discuss with Dr. Leigh and he agrees. Patient is not a TNK candidate as he is out of the window. Discussed with the hospitalist for further evaluation management treatment. Consults/Care Managements Discussions: Per [facility] Triage Nursing notes reviewed. Limited review of prior medical records performed Vital Signs: reviewed and remarkable for no significant abnormalities Differential diagnosis: Differential Diagnosis includes but is not limited to ischemic Stroke, hemorrhagic stroke, bells palsy, mass, neoplasm, migraine headache, seizure, subarachnoid hemorrhage, TIA, and transient global amnesia. ER treatment provided: See below Diagnostics interpreted by me include EKG and cardiac monitoring as listed below: -Cardiac Monitoring: An order was placed for continuous cardiac monitoring. The monitor shows a rate of 70 with sinus rhythm. -ECG: Sinus rhythm rate 68 Normal axis T wave version inferior leads QTc 416 -Laboratory studies:Interpreted by me as stated above in MDM and shown below. Imaging studies: Xrays: As interpreted by me: Portable AP upright 1 view of the chest shows no focal CTs show: none External images reviewed the MRI which suggest a stroke. Procedures:none Critical Care: None Past Med/Surg History Problem List (Updated 04/17/24 @ 22:08 by Douglas Dueñas DO) Left arm weakness (Acute) Arm numbness left (Acute) Acute CVA (cerebrovascular accident) (Acute) Right inguinal hernia Nasal congestion Laryngopharyngeal reflux Chronic sinusitis Acute recurrent sinusitis TIA (transient ischemic attack) (Acute) Patent foramen ovale Allergic rhinitis Hyperlipidemia Impaired glucose metabolism Melanoma Recurrent left inguinal hernia Encounter for pre-operative examination Benign prostatic hyperplasia Peyronie's disease Viral pharyngitis S/P left inguinal hernia repair (11/05/22) Laparoscopic recurrent left inguinal hernia repair. Dr. Perez Acquired deviated nasal septum Hypertrophy of nasal turbinates Sleep apnea CPAP DEVICE Tinnitus Medical History Acquired deviated nasal septum History of COVID-19 11/2020>RESOLVED History of DVT of lower extremity 1997 S/P KNEE SURGERY *WAS ON COUMADIN SHORT TERM History of melanoma removed from shoulder Hx-TIA (transient ischemic attack) "SUSPECTED"> 3+ YEARS AGO (REASON FOR STATIN AND ASA RX>NO RESIDUAL) Hypertrophy of nasal turbinates Irregular heart rate NO CARDS Scoliosis MILD Sleep apnea CPAP DEVICE Throat clearing Tinnitus Surgical History H/O local excision of skin lesion right shoulder blade History of arthroscopic knee surgery ? SIDE History of colonoscopy Hx of cataract extraction lt. S/P laparoscopic hernia repair RT INGUINAL S/P left inguinal hernia repair (11/05/22) Laparoscopic recurrent left inguinal hernia repair. Dr. Perez [place] teeth removed Family History Mother Cardiac disorder Breast cancer Hypertension Father Bladder cancer Brother Colon cancer Sister Breast cancer Other No family history of adverse response to anesthesia Denies family history of Ovarian cancer Prostate cancer Lung cancer Social History Smoking Status: Never smoker Second Hand Exposure: No; Do You Dip or Chew Tobacco: No; Hx Alcohol Use: Yes Alcohol type: wine and hard liquor Alcohol Intake Frequency: 4 or More x per/Week Hx Substance Use: No Preferred Language: R[place] Communication Ability: Effective Visual Impairment: Limited Hearing Ability: Normal Data Center Manager Required: No Beliefs That Will Affect Care: None marital status: Current Living Situation: Spouse current occupational status: retired Other Information That Helps Us Care for You: No Feels Safe at Home: Yes Safety Concerns: Feels Safe At This Time Childhood Exposure to Second-Hand Smoke: No caffeine: Yes Dental Care, Regularly: Yes Physical Activity Frequency: Does not Exercise Seatbelt Use: always Sunscreen Use: Yes Assistive Devices: CPAP and Glasses Allergies Allergies Allergy/AdvReac Type Severity Reaction Status Date / Time doxycycline Allergy Mild Rash Verified 04/17/24 11:32 latex Allergy Mild RASH Verified 04/17/24 11:32 Home Meds Home Medications Medication Instructions Recorded Confirmed multivitamin (Multiple Vitamins 1 tab PO QAM 08/06/19 04/17/24 tablet) aspirin 81 mg tablet,delayed 81 mg PO DAILY 07/25/22 04/17/24 release omega 7-vxo-cgk-fish oil 1,000 mg 1 cap PO BID 07/25/22 04/17/24 (120 mg-180 mg) capsule (Fish Oil) vit C 250 mg-vit E 90 mg-zinc 40 1 tab PO QPM 07/25/22 04/17/24 mg-copper 1 ar-mbhhms-alftlo capsule (PreserVision AREDS-2) Expectorant 1 tab PO UD PRN Cough 04/17/24 04/17/24 Previous Rx's Medication Instructions Recorded CPAP Supplies #1 ea 07/01/23 azelastine 137 mcg (0.1 %) nasal 2 spray intranasal QAM ALLERGIC 07/10/23 spray aerosol RHINITIS #90 mL fluticasone propionate 50 2 spray intranasal QAM #48 grams 07/10/23 mcg/actuation nasal spray,suspension atorvastatin 10 mg tablet 10 mg PO 3XWK #90 tabs 02/12/24 clopidogrel 75 mg tablet (Plavix) 75 mg PO DAILY #30 tabs 04/17/24 Results & Data (ED) Vital Signs Vital Signs - 24 hr 04/17/24 18:24 04/17/24 18:24 04/17/24 19:00 Temperature 36.6 C Temperature Source Temporal Artery Scan Pulse Rate 76 67 Pulse Rate [Apical] Respiratory Rate 18 18 Blood Pressure 174/101 H Blood Pressure [Right Arm] Blood Pressure Mean 125 Blood Pressure Mean [Right Arm] Pulse Oximetry 95 Oxygen Delivery Method Room Air Sepsis Recent Fever Within 48 Hours No Sepsis New/Unexplained Change in Mental Status N/A Sepsis Action Taken by Nursing No Action Required 04/17/24 19:00 04/17/24 19:01 04/17/24 19:01 Temperature Temperature Source Pulse Rate 67 Pulse Rate [Apical] 66 Respiratory Rate 23 22 Blood Pressure 148/96 H Blood Pressure [Right Arm] 148/96 H Blood Pressure Mean 112 Blood Pressure Mean [Right Arm] 113 Pulse Oximetry Oxygen Delivery Method Room Air Sepsis Recent Fever Within 48 Hours Sepsis New/Unexplained Change in Mental Status Sepsis Action Taken by Nursing 04/17/24 19:01 Temperature Temperature Source Pulse Rate 66 Pulse Rate [Apical] Respiratory Rate 24 Blood Pressure Blood Pressure [Right Arm] Blood Pressure Mean Blood Pressure Mean [Right Arm] Pulse Oximetry Oxygen Delivery Method Sepsis Recent Fever Within 48 Hours Sepsis New/Unexplained Change in Mental Status Sepsis Action Taken by Nursing Laboratory Data 04/17/24 18:55 04/17/24 18:55 Lab Results 04/17/24 Range/Units 18:55 WBC 4.84 (4.8-10.8) K/ul RBC 4.73 (4.70-6.10) M/uL Hgb 14.7 (14.0-18.0) g/dl Hct 42.9 (42.0-52.0) % MCV 90.7 (80.0-100.0) fL MCH 31.1 (25.0-34.0) pg MCHC 34.3 (32.0-36.0) g/dL RDW Std Deviation 43.5 (36.4-46.3) fL RDW Coeff of Jinny 13.0 (11.5-14.5) % Plt Count 178 (130-400) K/uL MPV 10.4 (9.4-12.4) fL Immature Gran % (Auto) 0.2 % Neut % (Auto) 53.4 % Lymph % (Auto) 28.1 % Cross % (Auto) 10.5 % Eos % (Auto) 7.2 % Baso % (Auto) 0.6 % Neut # (Auto) 2.58 (1.40-6.50) K/uL Lymph # (Auto) 1.36 (1.20-3.40) K/uL Cross # (Auto) 0.51 (0.11-0.59) K/uL Eos # (Auto) 0.35 (0.00-0.50) K/uL Baso # (Auto) 0.03 (0.00-0.20) K/uL Immature Gran # (Auto) 0.01 (0.01-0.20) K/uL PT 11.0 (9.0-12.0) Seconds INR 1.0 (0.9-1.1) APTT 25 (21-31) Seconds PTT Ratio 0.9 Sodium 140 (136-145) mmol/L Potassium 3.7 (3.5-5.1) mmol/L Chloride 107 (98-107) mmol/L Carbon Dioxide 23 (21-32) mmol/L Anion Gap 10 (3-11) BUN 33 H (6-23) mg/dl Creatinine 1.29 (0.6-1.4) mg/dl Est Cr Clr Drug Dosing 52.3 ml/min Est GFR ( Amer) 65.1 ml/min Est GFR (Non-Af Amer) 56.2 ml/min BUN/Creatinine Ratio 25.6 H (10-20) Glucose 91 (70-99(Fasting)) mg/dl Calcium 8.9 (8.6-10.3) mg/dl Magnesium 2.1 (1.7-2.4) mg/dl Total Bilirubin 0.6 (0.2-1.0) mg/dl AST 30 (13-39) U/L ALT 33 (7-52) U/L Alkaline Phosphatase 49 (34-104) U/L Troponin I High Sens 6.5 (0-20) pg/ml Total Protein 7.3 (6.0-8.3) gm/dl Albumin 4.4 (3.4-5.0) gm/dl Globulin 2.9 (2.5-4.0) gm/dl Albumin/Globulin Ratio 1.5 (0.9-2) Discharge Plan Visit Data Chief Complaint: Referred by Doctor Stated Complaint: JUST HAD AN MRI DONE ED Provider: Douglas Dueñas Discharge Problem: Acute CVA (cerebrovascular accident), Arm numbness left, Left arm weakness Patient Disposition: Admitted As Inpatient Discharge Instructions Interventions: ED Discharge Assessment Last Done: 04/17/24 21:12
[2024-04-17 19:22] LABS: Basophils # (auto) 0.03 K/uL (0.00-0.20); Basophils % (auto) 0.6 %; Eosinophils # (auto) 0.35 K/uL (0.00-0.50); Eosinophils % (auto) 7.2 %; Hematocrit (blood only) 42.9 % (42.0-52.0); Hemoglobin 14.7 g/dl (14.0-18.0); Immature Granulocytes # (auto) 0.01 K/uL (0.01-0.20); Immature Granulocytes % (auto) 0.2 %; Lymphocytes # (auto) 1.36 K/uL (1.20-3.40); Lymphocytes % (auto) 28.1 %; Mean Corpuscular Hemoglobin 31.1 pg (25.0-34.0); Mean Corpuscular Hgb Conc 34.3 g/dL (32.0-36.0); Mean Corpuscular Volume 90.7 fL (80.0-100.0); Mean Platelet Volume 10.4 fL (9.4-12.4); Monocytes # (auto) 0.51 K/uL (0.11-0.59); Monocytes % (auto) 10.5 %; Neutrophils # (auto) 2.58 K/uL (1.40-6.50); Neutrophils % (auto) 53.4 %; Platelet Count 178 K/uL (130-400); RDW Standard Deviation 43.5 fL (36.4-46.3); Red Blood Count 4.73 M/uL (4.70-6.10); White Blood Count 4.84 K/ul (4.8-10.8)
[2024-04-17 19:31] LABS: Albumin Globulin Ratio 1.5 (0.9-2); Albumin Level 4.4 gm/dl (3.4-5.0); BUN Creatinine Ratio 25.6 (10-20); Bilirubin,Total 0.6 mg/dl (0.2-1.0); Calcium 8.9 mg/dl (8.6-10.3); Creatinine Clr Calc Pharmacy 52.3 ml/min; Est GFR (African American) 65.1 ml/min; Est GFR (Non-African American) 56.2 ml/min; Globulin 2.9 gm/dl (2.5-4.0); Magnesium 2.1 mg/dl (1.7-2.4); Potassium 3.7 mmol/L (3.5-5.1); Total Protein 7.3 gm/dl (6.0-8.3)
[2024-04-17 19:37] LABS: Troponin I High Sensitivity 6.5 pg/ml (0-20)
[2024-04-17 19:47] LABS: Partial Thromboplastin Ratio 0.9; Partial Thromboplastin Time 25 Seconds (21-31)
--- NOTE | 2024-04-17 19:51 | History & Physical Report ---
Date of Service April 17, 2024 Assessment & Plan (1) Acute CVA (cerebrovascular accident): Plan: 68yo right-handed male presenting with LUE numbness which started on 04/13/24. Patient was seen by his PCP today with concern for acute CVA. He had an MRI of the brain which revealed a small focus of restricted diffusion in the right parietal lobe with associated edema. Findings are compatible with a late acute phase infarct. No hemorrhagic transformation. Patient feels that his symptoms have largely resolved and he feels that his LUE numbness and clumsiness has resolved. Remainder of neurologic exam is unremarkable. Patient had HgbA1C performed today which was elevated at 6.1. -Admit to medical with telemetry -Neuro checks and NIHSS per protocol -Obtain CTA head and neck -Obtain fasting lipid panel -Patient with known PFO - recent travel from [place]. Will check bilateral LE doppler -ASA 81mg po daily -Plavix 75mg po daily -Atorvastatin 10mg po daily. Patient was previously on 10mg po 3x weekly. He had been on higher doses of Atorvastatin in the past but had some elevation of ALT. -PT/OT evaluation appreciated -Neurology consultation appreciated (2) Patent foramen ovale: Plan: Patient with known PFO noted on echocardiogram in 2019 during a TIA workup. -Check doppler bilateral LE Plan BRISEYDA: chronic -CPAP qHS History of Present Illness Chief Complaint: LUE tingling Primary Care Provider: Oren Laboy MD Grant Harris is a pleasant 68yo male with history of BRISEYDA, prior DVT (found to have Protein C deficiency), PFO noted on echocardiogram presenting with LUE tingling. Patient and his were recently on a 2.5 week cruise around the [facility]. He felt well with no complaints during the trip. He returned home on 04/13/24 and noted that in the airport he developed some numbness and tingling in his LUE. He also had some brief confusion while getting his car - he forgot what his car looked like and didn't recognize that it was his. The confusion was brief and resolved completely. His LUE tingling and clumsiness continued. He had some brief tingling on the left side of his face as well. Patient was sedrick by his PCP today with these complaints. PCP suspected CVA so he was ordered some bloodwork and an MRI of the brain and US of the carotids. Patient had been on ASA 81mg po three times weekly. His PCP recommended that he start taking his ASA daily. He was also prescribed Plavix 75mg daily which he has not yet started. No additional complaints. Patient denies headache, visual disturbance, chest pain, palpitations, cough, SOB. No numbness/tingling of the LLE. He reports that his LUE feels normal at this time. Patient presented with visual loss in July 2019 and was evaluated at [facility]. He was diagnosed with a presumed occipital TIA. He had an MRI and CTA of the neck which were unremarkable. He had a Holter monitor which revealed SVT ectopic complexes. His echocardiogram DID confirm the presence of the interatrial shunt - PFO. Allergies Allergy/AdvReac Type Severity Reaction Status Date / Time doxycycline Allergy Mild Rash Verified 04/17/24 11:32 latex Allergy Mild RASH Verified 04/17/24 11:32 Home Medications Medication Instructions Recorded Confirmed Type multivitamin (Multiple Vitamins 1 tab PO QAM 08/06/19 04/17/24 History tablet) aspirin 81 mg tablet,delayed 81 mg PO DAILY 07/25/22 04/17/24 History release omega 9-ify-seh-fish oil 1,000 mg 1 cap PO BID 07/25/22 04/17/24 History (120 mg-180 mg) capsule (Fish Oil) vit C 250 mg-vit E 90 mg-zinc 40 1 tab PO QPM 07/25/22 04/17/24 History mg-copper 1 gs-vnhtst-qjqkhs capsule (PreserVision AREDS-2) CPAP Supplies #1 ea 07/01/23 04/17/24 Rx azelastine 137 mcg (0.1 %) nasal 2 spray intranasal QAM ALLERGIC 07/10/23 04/17/24 Rx spray aerosol RHINITIS #90 mL fluticasone propionate 50 2 spray intranasal QAM #48 grams 07/10/23 04/17/24 Rx mcg/actuation nasal spray,suspension atorvastatin 10 mg tablet 10 mg PO 3XWK #90 tabs 02/12/24 04/17/24 Rx Expectorant 1 tab PO UD PRN Cough 04/17/24 04/17/24 History clopidogrel 75 mg tablet (Plavix) 75 mg PO DAILY #30 tabs 04/17/24 04/17/24 Rx Past Med/Surg History Problem List Left arm weakness (Acute) Arm numbness left (Acute) Acute CVA (cerebrovascular accident) (Acute) Right inguinal hernia Nasal congestion Laryngopharyngeal reflux Chronic sinusitis Acute recurrent sinusitis TIA (transient ischemic attack) (Acute) Patent foramen ovale Allergic rhinitis Hyperlipidemia Impaired glucose metabolism Melanoma Recurrent left inguinal hernia Encounter for pre-operative examination Benign prostatic hyperplasia Peyronie's disease Viral pharyngitis S/P left inguinal hernia repair (11/05/22) Laparoscopic recurrent left inguinal hernia repair. Dr. Perez Acquired deviated nasal septum Hypertrophy of nasal turbinates Sleep apnea CPAP DEVICE Tinnitus Medical History Irregular heart rate NO CARDS Scoliosis MILD 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 History of colonoscopy [place] teeth removed History of arthroscopic knee surgery ? SIDE H/O local excision of skin lesion right shoulder blade S/P laparoscopic hernia repair RT INGUINAL Family History Mother Cardiac disorder Breast cancer Hypertension Father Bladder cancer Brother Colon cancer Sister Breast cancer Other No family history of adverse response to anesthesia Denies family history of Ovarian cancer Prostate cancer Lung cancer Social History Smoking Status: Never smoker Second Hand Exposure: No; Do You Dip or Chew Tobacco: No; Hx Alcohol Use: Yes Alcohol type: wine and hard liquor Alcohol Intake Frequency: 4 or More x per/Week Hx Substance Use: No Preferred Language: Australian Communication Ability: Effective Visual Impairment: Limited Hearing Ability: Normal Compressor Operator Adjuster Required: No Beliefs That Will Affect Care: None marital status: Current Living Situation: Spouse current occupational status: retired Other Information That Helps Us Care for You: No Feels Safe at Home: Yes Safety Concerns: Feels Safe At This Time Childhood Exposure to Second-Hand Smoke: No caffeine: Yes Dental Care, Regularly: Yes Physical Activity Frequency: Does not Exercise Seatbelt Use: always Sunscreen Use: Yes Assistive Devices: CPAP and Glasses Review of Systems Review of Systems: All systems reviewed & are unremarkable except as noted in HPI & below Physical Exam Physical Exam: General: patient resting comfortably, NAD, non-toxic in appearance, AA&O x 4 Skin: warm, dry, intact, no rashes or lesions HEENT: NC/AT, PERRL, EOMI, anicteric sclera, conjunctiva without injection, external ear normal to inspection and nontender, nares patent, moist mucus membranes, dentition intact, no oropharyngeal lesions, neck supple, trachea midline, no LAD, no thyromegaly, no JVD Heart: +S1/S2, regular, no m/r/g Lungs: equal air entry bilaterally, no rales/rhonchi/wheezes Abd: +BS, soft, NT/ND, no masses/organomegaly/ascites Ext: warm, 2+ pulses in UE/LE bilaterally, no clubbing/cyanosis or edema Neuro: Pt AA&O x 4, speech clear and appropriate, CN II - XII grossly intact, sensation to light touch intact bilaterally, MS 5/5 in UE/LE bilaterally, lkkamm-ir-[id number] and noga-co-xcrl unremarkable Results & Data Results & Data Vital Signs (Past 12 Hours) Vital Signs Temp Pulse Pulse Resp BP BP Pulse Ox 04/17/24 19:01 66 24 04/17/24 19:01 148/96 H 04/17/24 19:01 66 22 148/96 H 04/17/24 19:00 67 23 04/17/24 19:00 67 04/17/24 18:24 18 04/17/24 18:24 36.6 C 76 18 174/101 H 95 O2 Del Method 04/17/24 19:01 04/17/24 19:01 04/17/24 19:01 Room Air 04/17/24 19:00 04/17/24 19:00 04/17/24 18:24 04/17/24 18:24 Room Air Laboratory Results Laboratory Results WBC 4.84 K/ul (4.8-10.8) 04/17/24 18:55 RBC 4.73 M/uL (4.70-6.10) 04/17/24 18:55 Hgb 14.7 g/dl (14.0-18.0) 04/17/24 18:55 Hct 42.9 % (42.0-52.0) 04/17/24 18:55 MCV 90.7 fL (80.0-100.0) 04/17/24 18:55 MCH 31.1 pg (25.0-34.0) 04/17/24 18:55 MCHC 34.3 g/dL (32.0-36.0) 04/17/24 18:55 RDW Std Deviation 43.5 fL (36.4-46.3) 04/17/24 18:55 RDW Coeff of Jinny 13.0 % (11.5-14.5) 04/17/24 18:55 Plt Count 178 K/uL (130-400) 04/17/24 18:55 MPV 10.4 fL (9.4-12.4) 04/17/24 18:55 Immature Gran % (Auto) 0.2 % 04/17/24 18:55 Neut % (Auto) 53.4 % 04/17/24 18:55 Lymph % (Auto) 28.1 % 04/17/24 18:55 [place] % (Auto) 10.5 % 04/17/24 18:55 Eos % (Auto) 7.2 % 04/17/24 18:55 Baso % (Auto) 0.6 % 04/17/24 18:55 Neut # (Auto) 2.58 K/uL (1.40-6.50) 04/17/24 18:55 Lymph # (Auto) 1.36 K/uL (1.20-3.40) 04/17/24 18:55 [place] # (Auto) 0.51 K/uL (0.11-0.59) 04/17/24 18:55 Eos # (Auto) 0.35 K/uL (0.00-0.50) 04/17/24 18:55 Baso # (Auto) 0.03 K/uL (0.00-0.20) 04/17/24 18:55 Immature Gran # (Auto) 0.01 K/uL (0.01-0.20) 04/17/24 18:55 PT 11.0 Seconds (9.0-12.0) 04/17/24 18:55 INR 1.0 (0.9-1.1) 04/17/24 18:55 APTT 25 Seconds (21-31) 04/17/24 18:55 PTT Ratio 0.9 04/17/24 18:55 Sodium 140 mmol/L (136-145) 04/17/24 18:55 Potassium 3.7 mmol/L (3.5-5.1) 04/17/24 18:55 Chloride 107 mmol/L (98-107) 04/17/24 18:55 Carbon Dioxide 23 mmol/L (21-32) 04/17/24 18:55 Anion Gap 10 (3-11) 04/17/24 18:55 BUN 33 mg/dl (6-23) H 04/17/24 18:55 Creatinine 1.29 mg/dl (0.6-1.4) 04/17/24 18:55 Est Cr Clr Drug Dosing 52.3 ml/min 04/17/24 18:55 Est GFR ( Amer) 65.1 ml/min 04/17/24 18:55 Est GFR (Non-Af Amer) 56.2 ml/min 04/17/24 18:55 BUN/Creatinine Ratio 25.6 (10-20) H 04/17/24 18:55 Glucose 91 mg/dl (70-99(Fasting)) 04/17/24 18:55 Calcium 8.9 mg/dl (8.6-10.3) 04/17/24 18:55 Magnesium 2.1 mg/dl (1.7-2.4) 04/17/24 18:55 Total Bilirubin 0.6 mg/dl (0.2-1.0) 04/17/24 18:55 AST 30 U/L (13-39) 04/17/24 18:55 ALT 33 U/L (7-52) 04/17/24 18:55 Alkaline Phosphatase 49 U/L (34-104) 04/17/24 18:55 Troponin I High Sens 6.5 pg/ml (0-20) 04/17/24 18:55 Total Protein 7.3 gm/dl (6.0-8.3) 04/17/24 18:55 Albumin 4.4 gm/dl (3.4-5.0) 04/17/24 18:55 Globulin 2.9 gm/dl (2.5-4.0) 04/17/24 18:55 Albumin/Globulin Ratio 1.5 (0.9-2) 04/17/24 18:55 Impressions Venous Doppler Study 04/17/24 19:51 Exam(s): US VENOUS BILATERAL LOWER EXTREMITIES EXAM: US Duplex Bilateral Lower Extremities Veins CLINICAL HISTORY: Reason for exam: ?DVT. TECHNIQUE: Real-time duplex ultrasound scan of the bilateral lower extremity veins integrating B-mode two-dimensional vascular structure, Doppler spectral analysis, color flow Doppler imaging and compression. COMPARISON: 08/19/2019. FINDINGS: Right deep veins: Unremarkable. No DVT in the right common femoral, femoral, proximal deep femoral or popliteal veins. The veins demonstrate normal color flow, are normally compressible, with normal phasic flow and/or augmentation response. Right superficial veins: Unremarkable. No thrombus in the visualized right great saphenous vein. Left deep veins: Unremarkable. No DVT in the left common femoral, femoral, proximal deep femoral or popliteal veins. The veins demonstrate normal color flow, are normally compressible, with normal phasic flow and/or augmentation response. Left superficial veins: Unremarkable. No thrombus in the visualized left great saphenous vein. Soft tissues: No acute findings. No popliteal cyst. IMPRESSION: No ultrasonographic evidence of deep venous thrombosis involving the bilateral lower extremities. Electronically signed by: Marlen Celis MD 04/17/24 21:24 PM Diagnostic Findings [facility] [place] [phone] Magnetic Resonance Report Patient: GRANT HARRIS Admit Date: 04/17/24 MR#: [id number] Address1: [address] [place] [address] Acct ID:[id number] Address2: Date: 1955 [facility] Zip: [place] [address] Age: 68 Location: MRI Sex: M Room/Bed: Att Phy: Oren Laboy MD Diagnosis: G45.9 - Transient cerebral ischemic attack, unspec Mallika Phy: Oren Laboy MD Service Date: 04/17/24 [facility] Phy: Interpreting Phy: Jaleel Leigh MDAdmit Phy: Ordering Phy: Oren Laboy MD cc: ~ MR brain MS wo/w con CLINICAL HISTORY: G45.9 - Transient cerebral ischemic attack, unspecified TECHNIQUE: Multiplanar and multisequence MR images of the brain were obtained prior to and following administration of gadolinium contrast. Comparison: Comparison is made to MRI brain 08/19/2019 FINDINGS: Restricted diffusion is seen in the right parietal lobe with associated edema and a minimally prominent vessel. Multiple T2 hyperintensities are seen in the white matter. The ventricular system is normal in appearance. No mass or abnormal enhancement is seen. There is no mass effect or midline shift. There is no evidence of acute intraparenchymal hemorrhage. No extra axial fluid collections are seen. The corpus callosum, pituitary gland, and cerebellar tonsils appear grossly unremarkable. Flow voids of the major intracranial arterial vessels are identified. A mucous retention cyst in the right maxillary sinus. IMPRESSION: 1. There is a small focus of restricted diffusion in the right parietal lobe with associated edema. Findings are compatible with late acute phase infarct as indicated by clinical history. No evidence of hemorrhagic transformation. 2. Multiple small T2 hyperintensities in the white matter grossly unchanged from 2019. This can be seen with microvascular ischemic disease, less likely demyelinating disease. ACT 112: Negative or not required by law. Electronically signed by: Jaleel Leigh M.D. 04/17/2024 7:45 PM Dictated: 04/17/241935 Transcribed: 04/17/241935 ECG Additional Comments: EKG wt NSR at 68bpm, normal axis, PL=105, QRS=86, KUp=595, no acute ischemic changes PG Care Time/CCT Total # of Minutes Spent Total Time Spent with Patient: Total time spent is greater than 50% in coordination of care (as documented) at patient's floor/unit and/or counseling patient: Coding Level of Care Code 71901 INT INP/OBS CARE 2/55MIN Diagnoses Acute CVA (cerebrovascular accident) I63.9 Patent foramen ovale Q21.1
[2024-04-17] MEDS ORDERED: ACETAMINOPHEN 325 MG TAB PO PRN (21:22)
[2024-04-17] MEDS ORDERED: PHARMACIST DISCHARGE MED REC CONSULT PRN (21:22)
[2024-04-17] MEDS ORDERED: ONDANSETRON INJ 2 MG/ML 2 ML VIAL IV PRN (21:22)
--- NOTE | 2024-04-17 21:25 | Ultrasound Report ---
Exam(s): US VENOUS BILATERAL LOWER EXTREMITIES EXAM: US Duplex Bilateral Lower Extremities Veins CLINICAL HISTORY: Reason for exam: ?DVT. TECHNIQUE: Real-time duplex ultrasound scan of the bilateral lower extremity veins integrating B-mode two-dimensional vascular structure, Doppler spectral analysis, color flow Doppler imaging and compression. COMPARISON: 08/19/2019. FINDINGS: Right deep veins: Unremarkable. No DVT in the right common femoral, femoral, proximal deep femoral or popliteal veins. The veins demonstrate normal color flow, are normally compressible, with normal phasic flow and/or augmentation response. Right superficial veins: Unremarkable. No thrombus in the visualized right great saphenous vein. Left deep veins: Unremarkable. No DVT in the left common femoral, femoral, proximal deep femoral or popliteal veins. The veins demonstrate normal color flow, are normally compressible, with normal phasic flow and/or augmentation response. Left superficial veins: Unremarkable. No thrombus in the visualized left great saphenous vein. Soft tissues: No acute findings. No popliteal cyst. IMPRESSION: No ultrasonographic evidence of deep venous thrombosis involving the bilateral lower extremities. Electronically signed by: Marlen Celis MD 04/17/24 21:24 PM
[2024-04-17] MEDS: OPTIRAY 320 125ml IV ONE (23:37)
--- NOTE | 2024-04-18 00:42 | CT Scan Report ---
Exam(s): CTA NECK With Contrast IV Amt: 120 mls optiray 320 EXAM: CT Angiography Neck With Intravenous Contrast CLINICAL HISTORY: Reason for exam: CVA. TECHNIQUE: Routine carotid CT angiography protocol was performed with intravenous contrast. NASCET criteria using the distal ICAs for comparison were used for evaluation of stenoses. CTDI is 20.68 mGy and DLP is 502.98 mGy-cm. Automated exposure control was utilized for the study. A dose lowering technique was utilized adhering to the principles of ALARA. MIP reconstructed images were created and reviewed. CONTRAST: Patient received 120 mls optiray 320 of IV contrast COMPARISON: 08/18/2019. FINDINGS: VASCULATURE: Right common carotid artery: Unremarkable. No occlusion or significant stenosis. No dissection. Right internal carotid artery: Unremarkable. Extracranial segment is patent with no occlusion or significant stenosis. No dissection. Right external carotid artery: Unremarkable. No occlusion. Right vertebral artery: Unremarkable. No occlusion or significant stenosis. No dissection. Left common carotid artery: Unremarkable. No occlusion or significant stenosis. No dissection. Left internal carotid artery: Unremarkable. Extracranial segment is patent with no occlusion or significant stenosis. No dissection. Left external carotid artery: Unremarkable. No occlusion. Left vertebral artery: Unremarkable. No occlusion or significant stenosis. No dissection. NECK: Bones/joints: Unremarkable. No acute fracture. Soft tissues: Unremarkable. Lung apices: Clear. CAROTID STENOSIS REFERENCE USING NASCET CRITERIA: % ICA stenosis = (1 - narrowest ICA diameter/diameter of distal cervical ICA) x 100. Mild - <50% stenosis. Moderate - 50-69% stenosis. Severe - 70-94% stenosis. Near occlusion - 95-99% stenosis. Occluded - 100% stenosis. IMPRESSION: Normal CT angiogram of the neck with no focal stenosis, occlusion or dissection. Electronically signed by: Marlen Celis MD 04/18/24 00:41 AM
--- NOTE | 2024-04-18 00:44 | CT Scan Report ---
Exam(s): CTA HEAD With Contrast IV Amt: 120 mls optiray 320 EXAM: CT Angiography Head With Intravenous Contrast CLINICAL HISTORY: Reason for exam: CVA. TECHNIQUE: Axial computed tomographic angiography images of the head with intravenous contrast. CTDI is 20.68 mGy and DLP is 502.98 mGy-cm. Automated exposure control was utilized for the study. A dose lowering technique was utilized adhering to the principles of ALARA. MIP reconstructed images were created and reviewed. CONTRAST: Patient received 120 mls optiray 320 of IV contrast COMPARISON: None. FINDINGS: Right internal carotid artery: Minimal calcified plaque within the cavernous portion of the right internal carotid artery with no stenosis. No aneurysm. Right anterior cerebral artery: Unremarkable. No occlusion or significant stenosis. No aneurysm. Right middle cerebral artery: Unremarkable. No occlusion or significant stenosis. No aneurysm. Right posterior cerebral artery: Unremarkable. No occlusion or significant stenosis. No aneurysm. Right vertebral artery: Unremarkable as visualized. Left internal carotid artery: Minimal calcified plaque within the cavernous portion of the left internal carotid artery with no stenosis. No aneurysm. Left anterior cerebral artery: Unremarkable. No occlusion or significant stenosis. No aneurysm. Left middle cerebral artery: Unremarkable. No occlusion or significant stenosis. No aneurysm. Left posterior cerebral artery: Unremarkable. No occlusion or significant stenosis. No aneurysm. Left vertebral artery: Unremarkable as visualized. Basilar artery: Unremarkable. No occlusion or significant stenosis. No aneurysm. IMPRESSION: Negative CT angiogram of the brain with no focal stenosis, occlusion or aneurysm involving the [place] of [place]. Electronically signed by: Marlen Celis MD 04/18/24 00:43 AM
[2024-04-18 06:54] LABS: Chol HDL Ratio 3.1 (0-5)
--- NOTE | 2024-04-18 08:23 | XRay Report ---
XR chest 1V portable HISTORY: neuro deficit, acute stroke suspected COMPARISON: Chest 08/07/2018. FINDINGS: The lungs are clear. Cardiac silhouette is normal in size. No pleural effusions. No pneumot horax. IMPRESSION: No acute process. ACT 112: Negative or not required by law. Electronically signed by: Milton Rios M.D. 04/18/2024 8:21 AM
[2024-04-18] MEDS: FLUTICASONE PROPIONATE NA SPR 16 GM BTL NAE SCH (08:38)
[2024-04-18] MEDS: ASPIRIN 81 MG ECTAB PO SCH (08:38)
[2024-04-18] MEDS: CLOPIDOGREL BISULFATE 75 MG TAB PO SCH (08:38)
[2024-04-18] MEDS: AZELASTINE HCL 0.1% NASAL 200 SPRAYS/27,400 MCG BTL NAE SCH (08:39)
--- NOTE | 2024-04-18 08:54 | Discharge Summary ---
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 Patient and his were recently on a 2.5 week cruise around the [employer]. He felt well with no complaints during the trip. He returned home on 04/13/24 and noted that in the airport he developed some numbness and tingling in his LUE. He also had some brief confusion while getting his car - he forgot what his car looked like and didn't recognize that it was his. The confusion was brief and resolved completely. His LUE tingling and clumsiness continued. He had some brief tingling on the left side of his face as well. Patient was sedrick by his PCP today with these complaints. PCP suspected CVA so he was ordered some bloodwork and an MRI of the brain and US of the carotids. Patient had been on ASA 81mg po three times weekly. His PCP recommended that he start taking his ASA daily. He was also prescribed Plavix 75mg daily which he h as not yet started. No additional complaints. Patient denies headache, visual disturbance, chest pain, palpitations, cough, SOB. No numbness/tingling of the LLE. He reports that his LUE feels normal at this time. Patient presented with visual loss in July 2019 and was evaluated at [facility]. He was diagnosed with a presumed occipital TIA. He had an MRI and CTA of the neck which were unremarkable. He had a Holter monitor which revealed SVT ectopic complexes. His echocardiogram DID confirm the presence of the interatrial shunt - PFO. Admission Exam Per Admitting Provider General: patient resting comfortably, NAD, non-toxic in appearance, AA&O x 4 Skin: warm, dry, intact, no rashes or lesions HEENT: NC/AT, PERRL, EOMI, anicteric sclera, conjunctiva without injection, external ear normal to inspection and nontender, nares patent, moist mucus m embranes, dentition intact, no oropharyngeal lesions, neck supple, trachea midline, no LAD, no thyromegaly, no JVD Heart: +S1/S2, regular, no m/r/g Lungs: equal air entry bilaterally, no rales/rhonchi/wheezes Abd: +BS, soft, NT/ND, no masses/organomegaly/ascites Ext: warm, 2+ pulses in UE/LE bilaterally, no clubbing/cyanosis or edema Neuro: Pt AA&O x 4, speech clear and appropriate, CN II - XII grossly intact, sensation to light touch intact bilaterally, MS 5/5 in UE/LE bilaterally, sdsioa-cy-tltb and yxsd-nz-onol unremarkable Principal Diagnosis CVA Discharge Exam Constitutional WD/WN, vitals as above Respiratory normal respiratory effort, lungs clear to auscultation Cardiovascular RRR, no murmur, no edema Musculoskeletal no cyanosis or clubbing, extremities motor strength 5/5 Skin no rashes, warm and dry Neurologic No focal neurological deficits appreciated. Strength and sensation preserved throughout. Psychiatric A+Ox3, euthymic affect Discharge Data Allergies Allergy/AdvReac Type Severity Reaction Status Date / Time doxycycline Allergy Mild Rash Verified 04/17/24 11:32 latex Allergy Mild RASH Verified 04/17/24 11:32 Consultations 04/17/24 18:49 ED Decision to Admit Stat 04/17/24 21:22 Consult Neurology Routine Ordered Studies 04/17/24 19:51 US venous doppler LE BI Stat 04/17/24 21:22 CT angio head w con Routine CT angio neck with con Routine Hospital Course (1) Acute CVA (cerebrovascular accident): (2) Patent foramen ovale: Plan 68yo right-handed male presented with LUE numbness which started on 04/13/24. CVA: -Brain MRI consistent with late acute phase infarct, no evidence of hemorrhagic transformation -CTA head/neck unremarkable -Sx resolved at time of discharge -HbA1c 6.1 -LDL 79 -Neurology consulted: concern for cardioembolic stroke, recommend 30-day mobile outpatient telemetry vs cardiac loop recorder -DAPT x 3 weeks followed by antiplatelet monotherapy (either ASA or Plavix is reasonable) -H/o transaminitis with daily statin therapy, continue current Atorvastatin 10mg 3 times per week vs consider trial of Rosuvastatin with LFT monitoring PFO: -Known PFO on Echo in 2019 -Bilateral venous Doppler negative for DVT BRISEYDA: chronic -CPAP qHS Total Time Total Time Spent Total Time Spent (In Minutes): <30 Discharge Plan Discharge Items Patient Disposition: Home - Self-Care Reason For Visit: CVA Discharge Diagnosis: CVA Activity: Resume your previous activity Non-emergency contact: Primary Care Provider Call non-emergency contact if: you have any medication questions and your symptoms worsen Follow-up/Referrals: Oren Laboy MD [Primary Care Provider] - Diet: Heart Healthy Addtl Attending Provider Instructions: You were admitted to the hospital for a subacute stroke, confirmed on MRI. Fortunately, your clinical symptoms seemed to have resolved. You were seen by neurology, who recommended dual antiplatelet therapy (Aspirin and Plavix) for the next 3 weeks. After three weeks, you can switch to either daily Aspirin OR Plavix. Also, please continue to take your Atorvastatin as previously directed. A discharge summary will be sent to your primary care physician to ensure continuity of care. Please bring this discharge summary with you to your next office appointment so that your provider can review it at that time. Medications: Your medication list has been reviewed and reconciled upon discharge to ensure accuracy and continuity of care. An updated list of all your medications is included with your hospital discharge paperwork. Please review this list closely and make note of any changes to your medications. Follow up appointments: - Make a follow up appointment with your PCP within the next week. It is very important that you follow up with them shortly after discharge from the hospital. - Keep all of your follow up appointments as already scheduled. If you cannot make an appointment, notify your provider. CONTACT YOUR PRIMARY CARE PROVIDER if you experience any of the following: - Difficulty following your treatment plan - Difficulty taking any of your medications CALL 911 OR GO TO THE EMERGENCY DEPARTMENT if you experience any of the following: - Sudden, severe abdominal pain or nausea/vomiting - Severe chest pain or chest pain that radiates to your jaw or arm - Sudden, severe shortness of breath or difficulty breathing Pending Studies at Discharge: No Stand-Alone Forms: My [employer], Smoking Cessation Medications and DC Order Prescriptions: Continued (DME) CPAP Supplies Misc See Rx Instructions .Route Qty: 1 0RF Rx Instructions: mask, tubing, filters fluticasone propionate 50 mcg/actuation spray,suspension 2 spray INTNAS QAM Qty: 48 3RF Rx Instructions: administer into each nostril azelastine 137 mcg (0.1 %) aerosol,spray 2 spray INTNAS QAM Qty: 90 3RF Rx Instructions: administer into each nostril atorvastatin 10 mg tablet 10 mg PO 3XWK Qty: 90 3RF Rx Instructions: take 3 times per week clopidogrel [Plavix] 75 mg tablet 75 mg PO DAILY Qty: 30 2RF multivitamin [Multiple Vitamins] tablet 1 tab PO QAM aspirin 81 mg tablet,delayed release (DR/EC) 81 mg PO DAILY Rx Instructions: changed from 3x week to daily today for next 3 weeks 04/17/24 PreserVision AREDS-2 250-90-40-1 mg capsule 1 tab PO QPM omega 1-whj-sie-fish oil [Fish Oil] 1,000 mg (120 mg-180 mg) capsule 1 cap PO BID Expectorant 1 tab PO UD PRN (Reason: Cough) Rx Instructions: otc. pt unsure of brand Discharge Orders: Discharge Order (Routine); Ordered 04/18/24 Ordered By: Steffen Moura Admission Data Admit Date/Time: 04/17/24 19:51 Attending Provider: Douglas Gruber Admit Provider: Mariel Villalpando Primary Care Provider: Oren Laboy Other Providers: Mariel Villalpando; Tian Tavarez Other Interventions: Discharge Summary Assessment (RN) Last Done: 04/18/24 09:53 Supervising Physician Co-Signing Physician Notes I personally examined the patient and verified all alaniz points of history and exam, discussed case, and agree with decision making with Dr Moura Feeling good. Neurology input appreciated. Would like to go home. Extensive discussion with patient in regards to stroke, possible etiologies, and secondary risk reduction. Vitals noted, in general he is awake and alert pleasant no distress. HEENT normocephalic atraumatic mucous membranes moist. Breathing unlabored no accessory muscle use good effort. Skin without rashes pallor or icterus. Labs and diagnostics noted. StrokePFO seems to be the most suspicious culpritdual antiplatelets for 3 weeks and then antiplatelet monotherapy thereafter. We discussed that while the literature for PFO really does not support anticoagulation, the fact that he is formed prior DVTs, has a PFO, and now has had a stroke, and his stroke was in the context of having just had prolonged travelcertainly makes you suspicious about a paradoxical embolus/PFO mechanism. We discussed again that the literature does not support chronic anticoagulation in this setting, but given that he has formed DVTs in the past, it would not be unreasonable to have him take a DOAC on travel days at least for DVT prophylaxis, and possibly (while "off the beaten path") have a degree of stroke prophylaxis. Appreciate neuro's thoughts on event monitor to rule out paroxysmal A-fibI have asked for this to be set up. Safe/stable for home, follow-up with PCP next week Resident Activity Tracking Resident Involvement: Resident Care Provided Care Provided: Adult Hospital Medicine
--- NOTE | 2024-04-18 08:58 | Neurology Consultation ---
Date of Consultation April 18, 2024 Assessment & Plan (1) Acute CVA (cerebrovascular accident): Plan 68-year-old male with a subacute small juxtacortical right parietal lobe infarct which became symptomatic 4 to 5 days ago characterized primarily by numbness for the left face and arm and mild weakness for the left hand, symptoms nearly resolved this morning. He does not exhibit any signs of hemineglect, change in speech, or other neurologic signs or symptoms. His CT angiography of the head and neck are normal. He has been taking baby aspirin 3 days/week and atorvastatin 3 days/week. I had seen him for a TIA potentially localizing to the left occipital lobe in July 2019. He does have a PFO. Previous outpatient cardiac monitoring did not reveal atrial fibrillation although the study did reveal frequent supraventricular ectopic complexes and atrial tachycardia. I do have some concern for recurrent cardioembolic stroke in this patient. Would recommend 30-day mobile cardiac outpatient telemetry, if negative, however, may also be appropriate for consideration of a cardiac loop recorder. Would recommend dual antiplatelet therapy, aspirin 81 mg/day, and Plavix 75 mg/day for 3 weeks. Afterwards, would transition to antiplatelet monotherapy. Because he was taking baby aspirin only 3 days/week, it would not be unreasonable to upgrade his antiplatelet treatment to daily low-dose aspirin. (Transitioning to Plavix 75 mg/day monotherapy would also be a reasonable option after 3 weeks of dual antiplatelet therapy.) Patient's recent lipid panel looks acceptable with atorvastatin 10 mg 3 times per week. His LDL is 79. There is some evidence that getting his LDL below 70 may provide some additional secondary stroke risk benefit. However, he has not tolerated a larger dosage/dosing frequency of atorvastatin due to transaminase elevation in the past. It may be reasonable to consider switching from atorvastatin to a daily regimen of Crestor, with ongoing monitoring of his liver function. I do not think he will require inpatient rehabilitation after this hospitalization. Patient should not require additional outpatient neurology follow-up. Please call with any questions. History of Present Illness Reason for Consultation: CVA Requesting Physician: Kwasi Attending Physician: Douglas Gruber DO History of Present Illness The patient is 68-year-old male who presented to the emergency department yesterday with a chief complaint of left face and arm numbness and weakness that began acutely 4 to 5 days prior. His symptoms had been improving although were still bothersome enough that he mention this to his PCP during an outpatient encounter yesterday morning. A brain MRI was completed urgently which did reveal an acute small juxtacortical right parietal lobe infarct. I did independently review these images and was able to appreciate this finding as well as mild chronic microvascular ischemic change. No hemorrhage. He was subsequently admitted to the [facility] for further stroke evaluation. A fo llow-up CT angiogram of the head and neck are normal. Electrocardiogram reveals a normal sinus rhythm. He informs me that he had been taking aspirin 81 mg/day 3 days/week, as well as atorvastatin 3 days/week. His PCP had given him a prescription for Plavix although he had not started this medication yet. This morning, the patient reports that he feels well. He denies headache, vision disturbance, or any residual numbness or weakness at this time. I note that I had seen this patient in neurological consultation in July 2019 in the context of a hospitalization for TIA. He had presented with an episode of transient visual field loss to the right, resolving within about 1 minute. He had an unremarkable imaging evaluation at that time. He was started on daily low-dose aspirin and a statin. An echocardiogram completed in July 2019 did indicate the presence of a PFO with injection of agitated saline. He did have outpatient cardiac monitoring completed in 2019 as well, no atrial fibrillation identified although there were frequent supraventricular ectopic complexes, atrial tachycardia, up to 6 beats in duration, rare PVCs, rare episodes of ventricular tachycardia, no reported symptoms. Allergies Allergy/AdvReac Type Severity Reaction Status Date / Time doxycycline Allergy Mild Rash Verified 04/17/24 11:32 latex Allergy Mild RASH Verified 04/17/24 11:32 Home Medications Medication Instructions Recorded Confirmed Type multivitamin (Multiple Vitamins 1 tab PO QAM 08/06/19 04/17/24 History tablet) aspirin 81 mg tablet,delayed 81 mg PO DAILY 07/25/22 04/17/24 History release omega 9-xub-cuv-fish oil 1,000 mg 1 cap PO BID 07/25/22 04/17/24 History (120 mg-180 mg) capsule (Fish Oil) vit C 250 mg-vit E 90 mg-zinc 40 1 tab PO QPM 07/25/22 04/17/24 History mg-copper 1 ty-igjgyp-xouroo capsule (PreserVision AREDS-2) CPAP Supplies #1 ea 07/01/23 04/17/24 Rx azelastine 137 mcg (0.1 %) nasal 2 spray intranasal QAM ALLERGIC 07/10/23 04/17/24 Rx spray aerosol RHINITIS #90 mL fluticasone propionate 50 2 spray intranasal QAM #48 grams 07/10/23 04/17/24 Rx mcg/actuation nasal spray,suspension atorvastatin 10 mg tablet 10 mg PO 3XWK #90 tabs 02/12/24 04/17/24 Rx Expectorant 1 tab PO UD PRN Cough 04/17/24 04/17/24 History clopidogrel 75 mg tablet (Plavix) 75 mg PO DAILY #30 tabs 04/17/24 04/17/24 Rx Patient History Medical History Irregular heart rate NO CARDS Scoliosis MILD 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 History of colonoscopy [place] teeth removed History of arthroscopic knee surgery ? SIDE H/O local excision of skin lesion right shoulder blade S/P laparoscopic hernia repair RT INGUINAL Family History Mother Cardiac disorder Breast cancer Hypertension Father Bladder cancer Brother Colon cancer Sister Breast cancer Other No family history of adverse response to anesthesia Denies family history of Ovarian cancer Prostate cancer Lung cancer Social History Smoking Status: Never smoker Second Hand Exposure: No; Do You Dip or Chew Tobacco: No; Hx Alcohol Use: Yes Alcohol type: wine and hard liquor Alcohol Intake Frequency: 4 or More x per/Week Hx Substance Use: No Preferred Language: Maltese Communication Ability: Effective Visual Impairment: Limited Hearing Ability: Normal 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 Required: No Beliefs That Will Affect Care: None marital status: Current Living Situation: Spouse current occupational status: retired Other Information That Helps Us Care for You: No Feels Safe at Home: Yes Safety Concerns: Feels Safe At This Time Childhood Exposure to Second-Hand Smoke: No caffeine: Yes Dental Care, Regularly: Yes Physical Activity Frequency: Does not Exercise Seatbelt Use: always Sunscreen Use: Yes Assistive Devices: CPAP and Glasses Review of Systems Constitutional: no fever and no chills Eyes: no blind spots and no diplopia Ear, Nose, Mouth, Throat: no hearing loss Respiratory: no cough and no dyspnea Cardiovascular: no chest pain and no palpitations Gastrointestinal: no nausea and no vomiting Genitourinary: no dysuria Musculoskeletal: no neck pain and no myalgia Integumentary: no rash and no lesions Neurologic: as per Subjective / HPI, + localized weakness and + loss of sensation; no tremor(s), no seizure-like activity, no syncope, no headache(s), no abnormal speech, no confusion and no memory loss Psychiatric: no depression and no anxiety Hematologic / Lymphatic: no easy bleeding and no easy bruising Exam (Neuro) Constitutional: well developed and well nourished; no acute distress Eyes: normal visual daly by confrontation, PERRL and EOM intact bilaterally; no nystagmus Neurologic: Oriented to:: Person, Place and Time Memory: Short Term Intact and Remote Intact Attention: Span Intact and Concentration Intact Speech Fluency: negative Dysarthria or Dysfluency Speech Aphasia: negative Aphasia Fund of Knowledge: Current Events, Past History and Vocabulary Cranial Nerves: Normal II, III, IV, , V, VII, VIII, IX, X, XI and XII Motor Strength: Normal Lower Extremities and Normal Upper Extremities Motor Tone: Normal Lower Extremities and Normal Upper Extremities Muscle Bulk/Involuntary Movements: No Involuntary Movements; negative Muscle Atrophy Sensation: Light Touch Intact, Pain/Temperature Intact and Proprioception Intact Coordination: Normal; negative Limited Balance, Dysdiadochokinesia, Finger-Nose Abnormal or Heel-Bates Abnormal Deep Tendon Reflexes: Rt Triceps: 2+, Lt Triceps: 2+, Rt Biceps: 2+, Lt Biceps: 2+, Rt Brachioradialis: 2+, Lt Brachioradialis: 2+, Rt Patellar: 2+, Lt Patellar: 2+, Rt Ankle: 2+ and Lt Ankle: 2+ Special Tests: negative Babinski Present Details: Gait not tested. There is a slight degree of loss of facility with finger tapping for the left hand. No pronator drift. Results & Data Vital Signs (Past 12 Hours) Vital Signs Temp Pulse Pulse Resp BP Pulse Ox O2 Del Method 04/18/24 07:22 75 04/18/24 06:15 36.6 C 59 L 17 138/79 97 Room Air 04/18/24 03:11 68 16 99 04/17/24 22:23 70 20 98 04/17/24 21:57 70 04/17/24 21:36 71 04/17/24 21:24 36.6 C 70 17 159/96 H 95 Room Air 04/17/24 21:23 36.6 C 69 17 159/96 H 95 Room Air 04/17/24 21:22 36.6 C 70 17 159/96 H 95 Room Air Laboratory Results WBC 4.84, hemoglobin 14.7, hematocrit 42.9, platelet count 178, sodium 140, potassium 3.7, BUN 33, creatinine 1.29, hemoglobin A1c 6.1, calcium 8.9, magnesium 2.1, AST 30, ALT 33, CRP 0.64, triglycerides 130, cholesterol 154, LDL 79, HDL 49, vitamin B12 637, TSH 1.231 Diagnostic Findings Brain MRI and CTA of the head and neck are as described in the HPI, I in dependently reviewed these images. Lower extremity ultrasound completed yesterday was unremarkable, no evidence of DVT in either lower limb. Electrocardiogram completed yesterday revealed a normal sinus rhythm, 68 bpm. (See HPI for description of previous outpatient cardiac monitoring done and echocardiogram in 2019.) Coding Level of Care Code 49025 INT INP/OBS CARE /75MIN Diagnoses Acute CVA (cerebrovascular accident) I63.9 Time Spent (min) 80 Comment Total time includes patient contact, chart review, counseling, note preparation
[2024-04-18] MEDS ORDERED: STROKE PATIENT DISCHARGE STA (09:36)
--- NOTE | 2024-04-18 11:30 | Electrocardiogram Report ---
Test Reason : Blood Pressure : / mmHG Vent. Rate : 068 BPM Atrial Rate : 068 BPM P-R Int : 194 ms QRS Dur : 086 ms QT Int : 392 ms P-R-T Axes : 009 010 018 degrees QTc Int : 416 ms Normal sinus rhythm Minimal voltage criteria for LVH, may be normal variant ( R in aVL ) Borderline ECG When compared with ECG of 26-OCT-2022 10:48, T wave inversion now evident in Inferior leads Confirmed by Bautista Sykes ([id number]) on 04/18/2024 11:30:18 AM Referred By: Oren Laboy Confirmed By:Bautista Sykes
--- NOTE | 2024-04-18 14:52 | Billing Data ---
Date of Service April 18, 2024 Coding Level of Care Code 65925 IN/OBS DISCH 30 MIN/LESS
[2024-04-20] MEDS ORDERED: ATORVASTATIN 10 MG TAB PO SCH (09:00)
== END 2024-04-18 11:15 | disposition home or self-care (01) | DRG 65 ==
LOC: ED 18:23 → 2N 19:51 → INTOOBSV 19:51 → OBSVTOIN 19:51 → SUATTDRO 19:51 → 2N 21:12
DX: E78.5 Hyperlipidemia, unspecified; Z91.040 Latex allergy status; R53.83 Other fatigue; M65.9 Synovitis and tenosynovitis, unspecified; R20.0 Anesthesia of skin; Z79.02 Long term (current) use of antithrombotics/antiplatelets; G47.33 Obstructive sleep apnea (adult) (pediatric); Z86.718 Personal history of other venous thrombosis and embolism; E03.9 Hypothyroidism, unspecified; D68.59 Other primary thrombophilia; D64.9 Anemia, unspecified; R73.02 Impaired glucose tolerance (oral); E53.8 Deficiency of other specified B group vitamins; Z86.16 Personal history of COVID-19; Q21.12 Patent foramen ovale; Z86.73 Personal history of transient ischemic attack (TIA), and cerebral infarction without residual deficits; M35.81 Multisystem inflammatory syndrome; R73.09 Other abnormal glucose; I63.40 Cerebral infarction due to embolism of unspecified cerebral artery; Z88.1 Allergy status to other antibiotic agents; A69.20 Lyme disease, unspecified; Z79.82 Long term (current) use of aspirin; G83.24 Monoplegia of upper limb affecting left nondominant side; Z12.5 Encounter for screening for malignant neoplasm of prostate; G45.9 Transient cerebral ischemic attack, unspecified